=== PATIENT | male | born 1955 | race African-American/Black ===

== ENCOUNTER 2017-11-27 10:25 | Inpatient (IN) ==
[2017-11-27] MEDS ORDERED: ASPIRIN 325 MG TABLET PO STA (10:51)
[2017-11-27] MEDS ORDERED: FUROSEMIDE 40 MG/4 ML VIAL IV STA (10:56)
[2017-11-27] MEDS ORDERED: FUROSEMIDE 100 MG/10 ML VIAL ONE (11:28)
[2017-11-27] MEDS ORDERED: ASPIRIN 325 MG TABLET ONE (11:29)
[2017-11-27 11:45] LABS: Basophils % 0.3 % (0.0-0.8); Eosinophils # 0.1 10*3/uL (0.0-0.87); Eosinophils % 1.1 % (0.00-10.9); Hematocrit 43.6 VOL% (42.0-52.0); Hemoglobin 14.2 GM/DL (14.0-18.0); Immature Granulocytes % 0.3 %; Immature Granulocytes Absolute 0.02 #; Lymphocytes # 1.7 10*3/uL (1.4-4.0); Lymphocytes % 22.6 % (21.2-54.2); Mean Corpuscular HGB Conc 32.6 GM/DL (32-36); Mean Corpuscular Hemoglobin 25 PG (27-34); Mean Platelet Volume 11.6 FL (9.6-12.0); Monocytes # 0.7 10*3/uL (0.11-0.8); NRBC # 0.03 10*3/uL; Neutrophils % 66.7 % (38.7-73.9); Platelet Count 218 T/CUMM (130-400); Red Blood Count 5.59 MC/CUMM (3.8-5.5); Red Cell Distribution Width 18.8 % (9.3-17.3); White Blood Count 7.5 T/CUMM (4-12)
[2017-11-27 11:51] LABS: INR 1.2
[2017-11-27 12:12] LABS: Albumin 3.2 G/DL (3.4-5.0); Bilirubin,Total 1.8 MG/DL (0.2-1.0); CKMB % 1.8 %; Calcium 8.8 MG/DL (8.5-10.1); Osmolality,Calculated 287.3 MOS/KG (273-304); Potassium 4.4 MMOL/L (3.5-5.1); Total Protein 6.8 G/DL (6.4-8.3)
[2017-11-27 12:14] LABS: Troponin I Only 0.576 NG/ML (0.00-0.045)
[2017-11-27] MEDS ORDERED: MAGNESIUM SULF RIDER 4 GM in PREMIX 1 EACH IV PRN (12:24)
[2017-11-27] MEDS ORDERED: POTASSIUM CHLORIDE RIDER 10 MEQ in PREMIX 1 EACH IV PRN (12:24)
[2017-11-27] MEDS ORDERED: ACETAMINOPHEN 325 MG TABLET PO PRN (12:24)
[2017-11-27] MEDS ORDERED: MAGNESIUM SULF RIDER 2 GM in PREMIX 1 EACH IV PRN (12:24)
[2017-11-27] MEDS ORDERED: ONDANSETRON 4 MG/2 ML VIAL IV PRN (12:24)
[2017-11-27] MEDS ORDERED: guaiFENesin/DM ER 600-30 MG TABLET PO PRN (15:05)
[2017-11-27] MEDS ORDERED: ALBUTEROL 2.5 MG/3 ML NEB RESP TX PRN (15:05)
[2017-11-27] MEDS ORDERED: LACTULOSE 20 GM/30 ML UDCUP PO PRN (15:05)
[2017-11-27] MEDS ORDERED: diphenhydrAMINE CAP 25 MG CAPSULE PO PRN (15:05)
[2017-11-27] MEDS ORDERED: DOCUSATE SODIUM 100 MG CAPSULE PO PRN (15:05)
[2017-11-27] MEDS ORDERED: ZALEPLON 5 MG CAPSULE PO PRN (15:05)
[2017-11-27] MEDS ORDERED: INFLUENZA VIRUS VACCINE 0.5 ML SYRINGE IM ONE (15:20)
[2017-11-27 16:27] LABS: CKMB % 1.8 %
[2017-11-27 16:28] LABS: Troponin I Only 0.489 NG/ML (0.00-0.045)
[2017-11-27] MEDS: FUROSEMIDE 40 MG/4 ML VIAL IV SCH (17:00)
[2017-11-27 17:20] LABS: Hepatitis A Ab IgM Quant 0.14 Index; Hepatitis A Ab IgM Result Negative (Negative); Hepatitis B Core IgM Quant 0.17 Index; Hepatitis B Core IgM Result Negative (Negative); Hepatitis B Surface Ag Quant 0.44 Index; Hepatitis B Surface Ag Result Negative (Negative); Hepatitis C Virus Ab Quant 0.06 Index; Hepatitis C Virus Ab Result Negative (Negative)
[2017-11-27 18:27] LABS: CKMB % 1.8 %
[2017-11-27 18:30] LABS: Troponin I Only 0.455 NG/ML (0.00-0.045)
[2017-11-27] MEDS: ENOXAPARIN 30 MG/0.3 ML SYRINGE SUBCUT SCH (21:33)
[2017-11-27] MEDS: CARVEDILOL 25 MG TABLET PO SCH (21:33)
[2017-11-28 05:12] LABS: Basophils % 0.3 % (0.0-0.8); Eosinophils # 0.2 10*3/uL (0.0-0.87); Eosinophils % 2.1 % (0.00-10.9); Hematocrit 39.2 VOL% (42.0-52.0); Hemoglobin 12.8 GM/DL (14.0-18.0); Immature Granulocytes % 0.1 %; Immature Granulocytes Absolute 0.01 #; Lymphocytes # 1.3 10*3/uL (1.4-4.0); Lymphocytes % 18.7 % (21.2-54.2); Mean Corpuscular HGB Conc 32.7 GM/DL (32-36); Mean Corpuscular Hemoglobin 25 PG (27-34); Mean Corpuscular Volume 77.5 FL (87-102); Monocytes # 0.7 10*3/uL (0.11-0.8); Monocytes % 10.3 % (1.7-12.7); NRBC # 0.04 10*3/uL; Neutrophils # 4.8 10*3/uL (1.4-7.4); Neutrophils % 68.5 % (38.7-73.9); Platelet Count 204 T/CUMM (130-400); Red Blood Count 5.06 MC/CUMM (3.8-5.5); Red Cell Distribution Width 18.1 % (9.3-17.3); White Blood Count 7.1 T/CUMM (4-12)
[2017-11-28 06:00] LABS: Albumin 2.6 G/DL (3.4-5.0); Bilirubin,Total 1.5 MG/DL (0.2-1.0); Calcium 7.9 MG/DL (8.5-10.1); Osmolality,Calculated 286.4 MOS/KG (273-304); Potassium 3.8 MMOL/L (3.5-5.1); Total Protein 5.9 G/DL (6.4-8.3)
[2017-11-28 06:24] LABS: Risk Ratio 4.47; VLDL CHOLESTEROL 9.4 MG/DL
[2017-11-28] MEDS: ASPIRIN EC 81 MG TABLET PO SCH (08:46)
[2017-11-28] MEDS: PANTOPRAZOLE 40 MG TABLET PO SCH (08:46)
[2017-11-28] MEDS: CARVEDILOL 25 MG TABLET PO SCH ×2 (08:46→20:29)
[2017-11-28] MEDS: FUROSEMIDE 40 MG/4 ML VIAL IV SCH ×2 (08:46→16:33)
[2017-11-28 18:04] LABS: Barbiturates Screen,Urine Negative (Negative); Benzodiazepines Screen,Urine Negative (Negative); Cannabinoid Screen,Urine Negative (Negative); Opiate Screen,Urine Negative (Negative); Phencyclidine Screen,Urine Negative (Negative)
[2017-11-28] MEDS: ENOXAPARIN 30 MG/0.3 ML SYRINGE SUBCUT SCH (20:29)
[2017-11-29 03:11] LABS: Basophils % 0.3 % (0.0-0.8); Eosinophils # 0.2 10*3/uL (0.0-0.87); Eosinophils % 3.1 % (0.00-10.9); Hematocrit 37.9 VOL% (42.0-52.0); Hemoglobin 13.1 GM/DL (14.0-18.0); Immature Granulocytes % 0.2 %; Immature Granulocytes Absolute 0.01 #; Lymphocytes # 1.6 10*3/uL (1.4-4.0); Lymphocytes % 27.5 % (21.2-54.2); Mean Corpuscular HGB Conc 34.6 GM/DL (32-36); Mean Corpuscular Hemoglobin 26 PG (27-34); Mean Platelet Volume 11.5 FL (9.6-12.0); Monocytes # 0.6 10*3/uL (0.11-0.8); Monocytes % 10.2 % (1.7-12.7); NRBC # 0.05 10*3/uL; Neutrophils # 3.5 10*3/uL (1.4-7.4); Neutrophils % 58.7 % (38.7-73.9); Platelet Count 223 T/CUMM (130-400); Red Blood Count 5.05 MC/CUMM (3.8-5.5); Red Cell Distribution Width 18.1 % (9.3-17.3); White Blood Count 5.9 T/CUMM (4-12)
[2017-11-29 05:42] LABS: Calcium 7.9 MG/DL (8.5-10.1); Osmolality,Calculated 288.4 MOS/KG (273-304); Potassium 3.8 MMOL/L (3.5-5.1)
[2017-11-29] MEDS: ASPIRIN EC 81 MG TABLET PO SCH (08:34)
[2017-11-29] MEDS: PANTOPRAZOLE 40 MG TABLET PO SCH (08:34)
[2017-11-29] MEDS: CARVEDILOL 25 MG TABLET PO SCH ×2 (08:34→21:07)
[2017-11-29] MEDS: FUROSEMIDE 40 MG/4 ML VIAL IV SCH (08:35)
[2017-11-29] MEDS: FUROSEMIDE 40 MG TABLET PO SCH (16:30)
[2017-11-29] MEDS: ENOXAPARIN 40 MG/0.4 ML SYRINGE SUBCUT SCH (21:07)
[2017-11-30 05:32] LABS: Basophils % 0.3 % (0.0-0.8); Eosinophils # 0.2 10*3/uL (0.0-0.87); Eosinophils % 2.9 % (0.00-10.9); Hematocrit 39.3 VOL% (42.0-52.0); Hemoglobin 12.7 GM/DL (14.0-18.0); Immature Granulocytes % 0.3 %; Immature Granulocytes Absolute 0.02 #; Lymphocytes # 1.8 10*3/uL (1.4-4.0); Lymphocytes % 30.9 % (21.2-54.2); Mean Corpuscular HGB Conc 32.3 GM/DL (32-36); Mean Corpuscular Hemoglobin 25 PG (27-34); Mean Corpuscular Volume 77.2 FL (87-102); Mean Platelet Volume 12.2 FL (9.6-12.0); Monocytes # 0.6 10*3/uL (0.11-0.8); Monocytes % 10.4 % (1.7-12.7); NRBC # 0.03 10*3/uL; Neutrophils # 3.2 10*3/uL (1.4-7.4); Neutrophils % 55.2 % (38.7-73.9); Platelet Count 248 T/CUMM (130-400); Red Blood Count 5.09 MC/CUMM (3.8-5.5); Red Cell Distribution Width 17.5 % (9.3-17.3); White Blood Count 5.9 T/CUMM (4-12)
[2017-11-30 06:18] LABS: Albumin 2.8 G/DL (3.4-5.0); Bilirubin,Total 1.2 MG/DL (0.2-1.0); Calcium 7.6 MG/DL (8.5-10.1); Osmolality,Calculated 287.3 MOS/KG (273-304); Potassium 3.8 MMOL/L (3.5-5.1); Total Protein 5.6 G/DL (6.4-8.3)
[2017-11-30] MEDS: PANTOPRAZOLE 40 MG TABLET PO SCH (08:01)
[2017-11-30] MEDS: CARVEDILOL 25 MG TABLET PO SCH ×2 (08:01→20:43)
[2017-11-30] MEDS: FUROSEMIDE 40 MG TABLET PO SCH ×2 (08:02→17:16)
[2017-11-30] MEDS: ASPIRIN EC 81 MG TABLET PO SCH (08:02)
[2017-11-30] MEDS: ENOXAPARIN 40 MG/0.4 ML SYRINGE SUBCUT SCH (20:43)
[2017-12-01 05:52] LABS: Basophils % 0.5 % (0.0-0.8); Eosinophils # 0.2 10*3/uL (0.0-0.87); Eosinophils % 2.5 % (0.00-10.9); Hematocrit 40.5 VOL% (42.0-52.0); Hemoglobin 13.6 GM/DL (14.0-18.0); Immature Granulocytes % 0.2 %; Immature Granulocytes Absolute 0.01 #; Lymphocytes # 1.8 10*3/uL (1.4-4.0); Lymphocytes % 29.5 % (21.2-54.2); Mean Corpuscular HGB Conc 33.6 GM/DL (32-36); Mean Corpuscular Hemoglobin 26 PG (27-34); Mean Corpuscular Volume 76.7 FL (87-102); Mean Platelet Volume 11.5 FL (9.6-12.0); Monocytes # 0.7 10*3/uL (0.11-0.8); Monocytes % 12.1 % (1.7-12.7); NRBC # 0.02 10*3/uL; Neutrophils # 3.3 10*3/uL (1.4-7.4); Neutrophils % 55.2 % (38.7-73.9); Platelet Count 246 T/CUMM (130-400); Red Blood Count 5.28 MC/CUMM (3.8-5.5); Red Cell Distribution Width 18.3 % (9.3-17.3); White Blood Count 5.9 T/CUMM (4-12)
[2017-12-01 06:09] LABS: Calcium 7.8 MG/DL (8.5-10.1); Osmolality,Calculated 285.7 MOS/KG (273-304); Potassium 3.8 MMOL/L (3.5-5.1)
[2017-12-01] MEDS: CARVEDILOL 25 MG TABLET PO SCH (09:22)
[2017-12-01] MEDS: ASPIRIN EC 81 MG TABLET PO SCH (09:22)
[2017-12-01] MEDS: PANTOPRAZOLE 40 MG TABLET PO SCH (09:22)
[2017-12-01] MEDS: FUROSEMIDE 40 MG TABLET PO SCH (09:22)
[2017-12-01 12:13] VITALS: BP 101/73
== END 2017-12-01 15:04 | disposition home or self-care (01) | DRG 291 ==
LOC: EDUNIT# → EDBD → N.ED 10:25 → N.EDINP 12:24 → N.TELEN 13:56
PROVIDERS: ADMIT Internal Medicine Cardiovascular Disease; ATTEND Internal Medicine Cardiovascular Disease

== ENCOUNTER 2019-03-10 15:35 | Inpatient (IN) ==
[2019-03-10] MEDS ORDERED: ALBUTEROL/IPRATROPIUM 3 ML NEB RESP TX STA ×2 (15:41→16:13)
[2019-03-10] MEDS ORDERED: methylPREDNISolone SOD SUC 125 MG/2 ML VIAL IV STA (15:41)
[2019-03-10] MEDS ORDERED: FUROSEMIDE 100 MG/10 ML VIAL IV STA (16:13)
[2019-03-10 16:18] LABS: Basophils % 0.1 % (0.0-0.8); Eosinophils # 0.2 10*3/uL (0.0-0.87); Eosinophils % 2.7 % (0.00-10.9); Hematocrit 42.9 VOL% (42.0-52.0); Hemoglobin 13.4 GM/DL (14.0-18.0); Immature Granulocytes % 0.4 %; Immature Granulocytes Absolute 0.03 #; Lymphocytes # 1.6 10*3/uL (1.4-4.0); Lymphocytes % 19.1 % (21.2-54.2); Mean Corpuscular HGB Conc 31.2 GM/DL (32-36); Mean Corpuscular Volume 92.7 FL (87-102); Mean Platelet Volume 10.9 FL (9.6-12.0); Monocytes % 10.4 % (1.7-12.7); NRBC # 0.06 10*3/uL; Neutrophils % 67.3 % (38.7-73.9); Platelet Count 224 T/CUMM (130-400); Red Blood Count 4.63 MC/CUMM (3.8-5.5); White Blood Count 8.4 T/CUMM (4-12)
[2019-03-10 16:38] LABS: Albumin 3.2 G/DL (3.4-5.0); Bilirubin,Total 0.5 MG/DL (0.2-1.0); Calcium 7.9 MG/DL (8.5-10.1); Osmolality,Calculated 294.7 MOS/KG (273-304); Total Protein 6.5 G/DL (6.4-8.3)
[2019-03-10] MEDS ORDERED: ACETAMINOPHEN 325 MG TABLET PO PRN (17:15)
[2019-03-10] MEDS ORDERED: MAGNESIUM SULF RIDER 2 GM in PREMIX 1 EACH IV PRN (17:15)
[2019-03-10] MEDS ORDERED: MAGNESIUM SULF RIDER 4 GM in PREMIX 1 EACH IV PRN (17:15)
[2019-03-10] MEDS ORDERED: ALBUTEROL/IPRATROPIUM 3 ML NEB RESP TX PRN (17:20)
[2019-03-10 19:16] LABS: Troponin I 0.176 NG/ML (0.00-0.045)
[2019-03-10] MEDS: ENOXAPARIN 30 MG/0.3 ML SYRINGE SUBCUT SCH (20:07)
[2019-03-11 06:53] LABS: Basophils % 0.1 % (0.0-0.8); Hemoglobin 14.2 GM/DL (14.0-18.0); Immature Granulocytes % 0.3 %; Immature Granulocytes Absolute 0.02 #; Lymphocytes # 0.8 10*3/uL (1.4-4.0); Lymphocytes % 10.9 % (21.2-54.2); Mean Corpuscular HGB Conc 32.3 GM/DL (32-36); Mean Corpuscular Volume 89.8 FL (87-102); Mean Platelet Volume 11.5 FL (9.6-12.0); Monocytes % 2.6 % (1.7-12.7); NRBC # 0.05 10*3/uL; Neutrophils % 86.1 % (38.7-73.9); Platelet Count 245 T/CUMM (130-400); Red Cell Distribution Width 17.3 % (9.3-17.3); White Blood Count 7.2 T/CUMM (4-12)
[2019-03-11 07:09] LABS: Bilirubin,Total 0.6 MG/DL (0.2-1.0); Calcium 8.1 MG/DL (8.5-10.1); Osmolality,Calculated 292.3 MOS/KG (273-304)
[2019-03-11] MEDS: FUROSEMIDE 40 MG/4 ML VIAL IV SCH ×2 (08:45→16:55)
[2019-03-11] MEDS: PANTOPRAZOLE 40 MG TABLET PO SCH (08:46)
[2019-03-11] MEDS: CARVEDILOL 25 MG TABLET PO SCH ×2 (08:46→16:55)
[2019-03-11] MEDS: ASPIRIN EC 81 MG TABLET PO SCH (08:46)
[2019-03-11] MEDS ORDERED: amLODIPine 10 MG TABLET PO ONE (08:47)
[2019-03-11] MEDS ORDERED: ALBUTEROL 2.5 MG/3 ML NEB RESP TX PRN (11:00)
[2019-03-11] MEDS: ENOXAPARIN 30 MG/0.3 ML SYRINGE SUBCUT SCH (21:01)
[2019-03-12 07:52] LABS: Calcium 8.1 MG/DL (8.5-10.1); Osmolality,Calculated 284.8 MOS/KG (273-304)
[2019-03-12 08:21] VITALS: BP 114/86
[2019-03-12] MEDS ORDERED: amLODIPine 10 MG TABLET PO SCH (09:00)
[2019-03-12] MEDS ORDERED: amLODIPine 5 MG TABLET PO SCH (09:00)
[2019-03-12] MEDS: FUROSEMIDE 40 MG/4 ML VIAL IV SCH (09:16)
[2019-03-12] MEDS: PANTOPRAZOLE 40 MG TABLET PO SCH (09:16)
[2019-03-12] MEDS: ASPIRIN EC 81 MG TABLET PO SCH (09:16)
[2019-03-12] MEDS: CARVEDILOL 25 MG TABLET PO SCH (09:16)
[2019-03-12] MEDS ORDERED: methylPREDNISolone SOD SUC 40 MG/1 ML VIAL IV ONE (09:17)
== END 2019-03-12 10:54 | disposition home or self-care (01) | DRG 291 ==
LOC: N.ED 15:35 → N.2E 17:15 → SUATTDRO 17:15 → N.2E 18:53
PROVIDERS: ADMIT Internal Medicine; ATTEND Internal Medicine Nephrology

== ENCOUNTER 2020-10-30 05:35 | Inpatient (IN) ==
[2020-10-30] MEDS ORDERED: FUROSEMIDE 40 MG/4 ML VIAL IV STA (06:53)
[2020-10-30 07:00] LABS: Basophils % 0.2 % (0.0-0.8); Eosinophils # 0.2 10*3/uL (0.0-0.87); Eosinophils % 2.6 % (0.00-10.9); Hematocrit 43.5 VOL% (42.0-52.0); Hemoglobin 14.2 GM/DL (14.0-18.0); Immature Granulocytes % 0.3 %; Immature Granulocytes Absolute 0.02 #; Lymphocytes # 1.4 10*3/uL (1.4-4.0); Lymphocytes % 20.7 % (21.2-54.2); Mean Corpuscular HGB Conc 32.6 GM/DL (32-36); Mean Corpuscular Volume 85.1 FL (87-102); Mean Platelet Volume 10.8 FL (9.6-12.0); Monocytes % 10.8 % (1.7-12.7); NRBC # 0.06 10*3/uL; Neutrophils % 65.4 % (38.7-73.9); Platelet Count 211 T/CUMM (130-400); Red Blood Count 5.11 MC/CUMM (3.8-5.5); Red Cell Distribution Width 17.9 % (9.3-17.3); White Blood Count 6.6 T/CUMM (4-12)
[2020-10-30 07:21] LABS: Albumin 3.3 G/DL (3.4-5.0); Bilirubin,Total 0.6 MG/DL (0.2-1.0); Calcium 8.4 MG/DL (8.5-10.1); Osmolality,Calculated 291.1 MOS/KG (273-304); Potassium 4.8 MMOL/L (3.5-5.1); Total Protein 6.7 G/DL (6.4-8.3)
[2020-10-30 07:22] LABS: ABG Base Excess -0.8 MMOL/L (-2.5-2.5); ABG HCO3 23.6 MMOL/L (20-26); ABG Oxygen Saturation 93.4 % (95-100); ABG PCO2 37.6 MM HG (35-48); ABG PH 7.405 (7.35-7.45); ABG PO2 72.1 MM HG (80-95); ABG TCO2 20.3 MMOL/L (23-27)
[2020-10-30] MEDS ORDERED: guaiFENesin/DM ER 600-30 MG TABLET PO PRN (09:46)
[2020-10-30] MEDS ORDERED: DEXTROSE 50% 25 GM/50 ML VIAL IV PRN (09:46)
[2020-10-30] MEDS ORDERED: GLUCAGON 1 MG VIAL IM PRN (09:46)
[2020-10-30] MEDS ORDERED: ZALEPLON 5 MG CAPSULE PO PRN (09:46)
[2020-10-30] MEDS ORDERED: ONDANSETRON 4 MG/2 ML VIAL IV PRN (09:46)
[2020-10-30] MEDS ORDERED: diphenhydrAMINE CAP 25 MG CAPSULE PO PRN (09:46)
[2020-10-30] MEDS ORDERED: POTASSIUM CHLORIDE RIDER 10 MEQ in PREMIX 1 EACH IV PRN (09:46)
[2020-10-30] MEDS ORDERED: MAGNESIUM SULF RIDER 4 GM in PREMIX 1 EACH IV PRN (09:46)
[2020-10-30] MEDS ORDERED: NICOTINE 21 MG/24 HR PATCH TRANSDERM PRN (09:46)
[2020-10-30] MEDS ORDERED: DOCUSATE SODIUM 100 MG CAPSULE PO PRN (09:46)
[2020-10-30] MEDS ORDERED: MAGNESIUM SULF RIDER 2 GM in PREMIX 1 EACH IV PRN (09:46)
[2020-10-30 10:46] LABS: Risk Ratio 3.37; Thyroid Stimulating Hormone 2.9 uIU/ml (0.358-3.74); VLDL CHOLESTEROL 12.6 MG/DL
[2020-10-30] MEDS: ENOXAPARIN 30 MG/0.3 ML SYRINGE SUBCUT SCH (12:00)
[2020-10-30] MEDS: carvediloL 3.125 MG TABLET PO SCH ×2 (12:00→20:59)
[2020-10-30] MEDS ORDERED: ISOSORBIDE MONONITRATE 30 MG TABLET PO ONE (12:00)
[2020-10-30] MEDS: PANTOPRAZOLE 40 MG TABLET PO SCH (12:06)
[2020-10-30] MEDS: ISOSORBIDE DINITRATE 20 MG TABLET PO SCH (13:16)
[2020-10-30] MEDS ORDERED: PNEUMOCOCCAL VACCINE (13 VALENT) 0.5 ML SYRINGE IM ONE (15:59)
[2020-10-30] MEDS ORDERED: INFLUENZA VIRUS VACCINE 0.5 ML SYRINGE IM ONE (15:59)
[2020-10-30] MEDS: FUROSEMIDE 40 MG/4 ML VIAL IV SCH (17:42)
[2020-10-31 05:50] LABS: Basophils % 0.3 % (0.0-0.8); Eosinophils # 0.2 10*3/uL (0.0-0.87); Eosinophils % 2.9 % (0.00-10.9); Hematocrit 45.2 VOL% (42.0-52.0); Hemoglobin 14.5 GM/DL (14.0-18.0); Immature Granulocytes % 0.3 %; Immature Granulocytes Absolute 0.02 #; Lymphocytes # 1.4 10*3/uL (1.4-4.0); Lymphocytes % 17.9 % (21.2-54.2); Mean Corpuscular HGB Conc 32.1 GM/DL (32-36); Mean Corpuscular Volume 83.5 FL (87-102); Mean Platelet Volume 11.1 FL (9.6-12.0); Monocytes % 10.5 % (1.7-12.7); NRBC # 0.03 10*3/uL; Neutrophils % 68.1 % (38.7-73.9); Platelet Count 213 T/CUMM (130-400); Red Blood Count 5.41 MC/CUMM (3.8-5.5); Red Cell Distribution Width 17.2 % (9.3-17.3); White Blood Count 7.5 T/CUMM (4-12)
[2020-10-31 06:12] LABS: Albumin 2.8 G/DL (3.4-5.0); Bilirubin,Total 0.5 MG/DL (0.2-1.0); Calcium 8.2 MG/DL (8.5-10.1); Osmolality,Calculated 287.3 MOS/KG (273-304); Potassium 3.7 MMOL/L (3.5-5.1); Total Protein 6.5 G/DL (6.4-8.3)
[2020-10-31] MEDS: ISOSORBIDE DINITRATE 20 MG TABLET PO SCH ×2 (09:10→21:11)
[2020-10-31] MEDS: PANTOPRAZOLE 40 MG TABLET PO SCH (09:10)
[2020-10-31] MEDS: FUROSEMIDE 40 MG/4 ML VIAL IV SCH ×3 (09:11→16:15)
[2020-10-31] MEDS: carvediloL 3.125 MG TABLET PO SCH (09:11)
[2020-10-31] MEDS: ENOXAPARIN 30 MG/0.3 ML SYRINGE SUBCUT SCH (09:11)
[2020-10-31] MEDS: carvediloL 6.25 MG TABLET PO SCH (18:10)
[2020-10-31] MEDS: MAGNESIUM OXIDE 400 MG TABLET PO SCH (21:11)
[2020-11-01 05:20] LABS: Basophils % 0.2 % (0.0-0.8); Eosinophils # 0.2 10*3/uL (0.0-0.87); Eosinophils % 2.1 % (0.00-10.9); Hematocrit 46.1 VOL% (42.0-52.0); Hemoglobin 14.9 GM/DL (14.0-18.0); Immature Granulocytes % 0.4 %; Immature Granulocytes Absolute 0.03 #; Lymphocytes # 1.2 10*3/uL (1.4-4.0); Lymphocytes % 14.2 % (21.2-54.2); Mean Corpuscular HGB Conc 32.3 GM/DL (32-36); Mean Platelet Volume 10.6 FL (9.6-12.0); Monocytes % 11.7 % (1.7-12.7); NRBC # 0.02 10*3/uL; Neutrophils % 71.4 % (38.7-73.9); Platelet Count 202 T/CUMM (130-400); Red Blood Count 5.49 MC/CUMM (3.8-5.5); Red Cell Distribution Width 17.2 % (9.3-17.3); White Blood Count 8.2 T/CUMM (4-12)
[2020-11-01 05:34] LABS: Albumin 2.7 G/DL (3.4-5.0); Bilirubin,Total 0.9 MG/DL (0.2-1.0); Osmolality,Calculated 280.7 MOS/KG (273-304); Potassium 3.4 MMOL/L (3.5-5.1); Total Protein 6.6 G/DL (6.4-8.3)
[2020-11-01] MEDS: carvediloL 6.25 MG TABLET PO SCH ×2 (09:17→18:19)
[2020-11-01] MEDS: ISOSORBIDE DINITRATE 20 MG TABLET PO SCH ×3 (09:17→21:07)
[2020-11-01] MEDS: FUROSEMIDE 40 MG/4 ML VIAL IV SCH (09:17)
[2020-11-01] MEDS: MAGNESIUM OXIDE 400 MG TABLET PO SCH ×2 (09:18→21:06)
[2020-11-01] MEDS: PANTOPRAZOLE 40 MG TABLET PO SCH (09:18)
[2020-11-01] MEDS: ENOXAPARIN 30 MG/0.3 ML SYRINGE SUBCUT SCH (09:19)
[2020-11-01] MEDS: POTASSIUM CHLORIDE 20 MEQ TABLET PO PRN ×3 (14:10→21:06)
[2020-11-01] MEDS: hydrALAZINE 25 MG TABLET PO SCH ×2 (17:24→21:07)
[2020-11-01] MEDS: FUROSEMIDE 40 MG TABLET PO SCH (17:24)
[2020-11-02 05:05] LABS: Basophils % 0.3 % (0.0-0.8); Eosinophils # 0.2 10*3/uL (0.0-0.87); Hematocrit 45.6 VOL% (42.0-52.0); Hemoglobin 14.7 GM/DL (14.0-18.0); Immature Granulocytes % 0.2 %; Immature Granulocytes Absolute 0.01 #; Lymphocytes # 1.2 10*3/uL (1.4-4.0); Lymphocytes % 20.7 % (21.2-54.2); Mean Corpuscular HGB Conc 32.2 GM/DL (32-36); Mean Corpuscular Volume 84.3 FL (87-102); Mean Platelet Volume 10.9 FL (9.6-12.0); Monocytes % 12.3 % (1.7-12.7); Neutrophils % 63.5 % (38.7-73.9); Platelet Count 203 T/CUMM (130-400); Red Blood Count 5.41 MC/CUMM (3.8-5.5); Red Cell Distribution Width 17.5 % (9.3-17.3)
[2020-11-02 05:34] LABS: Albumin 2.6 G/DL (3.4-5.0); Bilirubin,Total 0.6 MG/DL (0.2-1.0); Calcium 8.1 MG/DL (8.5-10.1); Osmolality,Calculated 281.7 MOS/KG (273-304); Potassium 4.5 MMOL/L (3.5-5.1); Total Protein 6.5 G/DL (6.4-8.3)
[2020-11-02] MEDS ORDERED: METOPROLOL SUCCINATE XL 25 MG TABLET PO SCH (09:00)
[2020-11-02] MEDS: hydrALAZINE 25 MG TABLET PO SCH ×2 (09:25→17:20)
[2020-11-02] MEDS: ENOXAPARIN 30 MG/0.3 ML SYRINGE SUBCUT SCH (09:25)
[2020-11-02] MEDS: FUROSEMIDE 40 MG TABLET PO SCH ×2 (09:25→17:20)
[2020-11-02] MEDS: ISOSORBIDE DINITRATE 20 MG TABLET PO SCH ×2 (09:25→17:20)
[2020-11-02] MEDS: MAGNESIUM OXIDE 400 MG TABLET PO SCH (09:25)
[2020-11-02] MEDS: PANTOPRAZOLE 40 MG TABLET PO SCH (09:25)
[2020-11-02 15:53] VITALS: BP 122/80
[2020-11-02] MEDS ORDERED: PNEUMOCOCCAL VACCINE (13 VALENT) 0.5 ML SYRINGE IM ONE (17:34)
[2020-11-02] MEDS ORDERED: INFLUENZA VIRUS VACCINE 0.5 ML SYRINGE IM ONE (17:34)
== END 2020-11-02 18:01 | disposition home or self-care (01) | DRG 291 ==
LOC: N.ED 05:35 → N.EDINP 09:46 → SUATTDRO 09:46 → N.TELEN 15:30
PROVIDERS: ADMIT Emergency Medicine; ATTEND Family Medicine

== ENCOUNTER 2021-01-30 01:01 | Observation (INO) ==
[2021-01-30] MEDS ORDERED: ALBUTEROL/IPRATROPIUM 3 ML NEB RESP TX STA (01:30)
[2021-01-30] MEDS ORDERED: methylPREDNISolone SOD SUC 125 MG/2 ML VIAL IV STA (01:30)
[2021-01-30] MEDS ORDERED: ONDANSETRON 4 MG/2 ML VIAL IV STA (01:30)
[2021-01-30] MEDS ORDERED: MORPHINE 4 MG/1 ML VIAL IV STA (01:30)
[2021-01-30] MEDS ORDERED: FUROSEMIDE 100 MG/10 ML VIAL IV STA (01:30)
[2021-01-30 01:55] LABS: Basophils % 0.1 % (0.0-0.8); Eosinophils # 0.2 10*3/uL (0.0-0.87); Eosinophils % 1.6 % (0.00-10.9); Hemoglobin 15.7 GM/DL (14.0-18.0); Immature Granulocytes % 0.3 %; Immature Granulocytes Absolute 0.03 #; Lymphocytes % 8.4 % (21.2-54.2); Mean Corpuscular Volume 83.9 FL (87-102); Monocytes % 4.8 % (1.7-12.7); Neutrophils % 84.8 % (38.7-73.9); Platelet Count 236 T/CUMM (130-400); Red Blood Count 5.84 MC/CUMM (3.8-5.5); Red Cell Distribution Width 21.5 % (9.3-17.3); White Blood Count 11.3 T/CUMM (4-12)
[2021-01-30 02:03] LABS: INR 1.1; PT Patient Result 12.6 SECS (9.8-11.9)
[2021-01-30 02:16] LABS: Albumin 3.4 G/DL (3.4-5.0); Bilirubin,Total 0.6 MG/DL (0.2-1.0); Calcium 8.6 MG/DL (8.5-10.1); Osmolality,Calculated 282.7 MOS/KG (273-304); Potassium 5.9 MMOL/L (3.5-5.1); Total Protein 7.5 G/DL (6.4-8.2)
[2021-01-30] MEDS ORDERED: CALCIUM CHLORIDE 1,000 MG/10 ML SYRINGE IV STA (02:46)
[2021-01-30 03:38] LABS: Bilirubin,Urine Negative (Negative); Blood, Urine Negative (Negative); Glucose,Urine (UA) Negative (Negative); Ketones,Urine Negative (Negative); Mucus,Urine Occasional /LPF (Occasional); Nitrite,Urine Negative (Negative); Protein,Urine Negative; RBC,Urine 2 /HPF (0-4); Urine Appearance CLEAR (Clear); Urine Color Straw (Yellow); Urine Specific Gravity 1.008 (1.001-1.035); Urine Urobilinogen < 2.0 EU/DL (0.2-1.0)
[2021-01-30] MEDS ORDERED: guaiFENesin/DM ER 600-30 MG TABLET PO PRN (03:53)
[2021-01-30] MEDS ORDERED: NICOTINE 21 MG/24 HR PATCH TRANSDERM PRN (03:53)
[2021-01-30] MEDS ORDERED: DEXTROSE 50% 25 GM/50 ML VIAL IV PRN (03:53)
[2021-01-30] MEDS ORDERED: MORPHINE 4 MG/1 ML VIAL IV PRN (03:53)
[2021-01-30] MEDS ORDERED: ACETAMINOPHEN 325 MG TABLET PO PRN (03:53)
[2021-01-30] MEDS ORDERED: GLUCAGON 1 MG VIAL IM PRN (03:53)
[2021-01-30] MEDS ORDERED: hydrALAZINE 20 MG/1 ML VIAL IV PRN (03:53)
[2021-01-30] MEDS ORDERED: ONDANSETRON 4 MG/2 ML VIAL IV PRN (03:53)
[2021-01-30 04:06] LABS: Barbiturates Screen,Urine Negative (Negative); Benzodiazepines Screen,Urine Negative (Negative); Cannabinoid Screen,Urine Negative (Negative); Opiate Screen,Urine Negative (Negative); Phencyclidine Screen,Urine Negative (Negative)
[2021-01-30] MEDS ORDERED: ENOXAPARIN 40 MG/0.4 ML SYRINGE SUBCUT SCH (07:00)
[2021-01-30 07:18] LABS: Calcium 9.6 MG/DL (8.5-10.1); Potassium 4.6 MMOL/L (3.5-5.1)
[2021-01-30] MEDS: ALBUTEROL/IPRATROPIUM 3 ML NEB RESP TX SCH ×3 (07:35→22:42)
[2021-01-30] MEDS: FUROSEMIDE 40 MG/4 ML VIAL IV SCH ×2 (07:49→16:13)
[2021-01-30] MEDS: HEPARIN 5,000 UNIT/1 ML VIAL SUBCUT SCH ×3 (07:49→23:50)
[2021-01-30 13:04] LABS: Albumin 3.5 G/DL (3.4-5.0); Bilirubin,Total 1.5 MG/DL (0.2-1.0); Calcium 9.3 MG/DL (8.5-10.1); Osmolality,Calculated 281.1 MOS/KG (273-304); Potassium 4.3 MMOL/L (3.5-5.1); Total Protein 8.1 G/DL (6.4-8.2)
[2021-01-30] MEDS: hydrALAZINE 25 MG TABLET PO SCH ×2 (16:14→23:51)
[2021-01-30] MEDS: ISOSORBIDE DINITRATE 20 MG TABLET PO SCH ×2 (16:14→23:51)
[2021-01-30] MEDS: METOPROLOL SUCCINATE XL 25 MG TABLET PO SCH (23:51)
[2021-01-31 03:51] LABS: Basophils % 0.1 % (0.0-0.8); Eosinophils # 0.1 10*3/uL (0.0-0.87); Eosinophils % 0.8 % (0.00-10.9); Hematocrit 48.8 VOL% (42.0-52.0); Hemoglobin 16.3 GM/DL (14.0-18.0); Immature Granulocytes % 0.3 %; Immature Granulocytes Absolute 0.03 #; Lymphocytes # 0.8 10*3/uL (1.4-4.0); Lymphocytes % 8.2 % (21.2-54.2); Mean Corpuscular HGB Conc 33.4 GM/DL (32-36); Mean Corpuscular Volume 81.3 FL (87-102); Mean Platelet Volume 11.3 FL (9.6-12.0); Monocytes % 9.6 % (1.7-12.7); NRBC # 0.02 10*3/uL; Platelet Count 238 T/CUMM (130-400); Red Cell Distribution Width 21.2 % (9.3-17.3); White Blood Count 9.7 T/CUMM (4-12)
[2021-01-31] MEDS: ALBUTEROL/IPRATROPIUM 3 ML NEB RESP TX SCH ×4 (03:56→19:34)
[2021-01-31 04:22] LABS: Calcium 8.5 MG/DL (8.5-10.1); Osmolality,Calculated 281.4 MOS/KG (273-304); Potassium 4.1 MMOL/L (3.5-5.1)
[2021-01-31 05:02] LABS: Eosinophils 1 % (0-10); Hypochromasia 1+; Lymphocytes 12 % (20-55); Microcytosis Slight; Segmented Neutrophils 78 % (50-85); Total Cells Counted 100
[2021-01-31 05:03] LABS: Platelet Estimate Normal; Target Cells Slight
[2021-01-31] MEDS: HEPARIN 5,000 UNIT/1 ML VIAL SUBCUT SCH ×2 (06:49→14:29)
[2021-01-31] MEDS: FUROSEMIDE 40 MG/4 ML VIAL IV SCH ×2 (08:27→17:26)
[2021-01-31] MEDS: ISOSORBIDE DINITRATE 20 MG TABLET PO SCH ×3 (09:13→21:29)
[2021-01-31] MEDS: hydrALAZINE 25 MG TABLET PO SCH ×3 (09:13→22:18)
[2021-01-31] MEDS: METOPROLOL SUCCINATE XL 25 MG TABLET PO SCH ×2 (09:13→22:18)
[2021-01-31] MEDS: SUCRALFATE 1 GM TABLET PO SCH ×2 (16:55→21:29)
[2021-02-01] MEDS: HEPARIN 5,000 UNIT/1 ML VIAL SUBCUT SCH ×2 (00:07→08:51)
[2021-02-01] MEDS: ALBUTEROL/IPRATROPIUM 3 ML NEB RESP TX SCH ×3 (01:32→12:12)
[2021-02-01 05:40] LABS: Basophils % 0.1 % (0.0-0.8); Eosinophils # 0.1 10*3/uL (0.0-0.87); Eosinophils % 1.3 % (0.00-10.9); Hematocrit 48.5 VOL% (42.0-52.0); Hemoglobin 16.1 GM/DL (14.0-18.0); Immature Granulocytes % 0.1 %; Immature Granulocytes Absolute 0.01 #; Lymphocytes # 1.5 10*3/uL (1.4-4.0); Lymphocytes % 21.3 % (21.2-54.2); Mean Corpuscular HGB Conc 33.2 GM/DL (32-36); Mean Corpuscular Volume 81.6 FL (87-102); Mean Platelet Volume 10.6 FL (9.6-12.0); Neutrophils % 64.2 % (38.7-73.9); Platelet Count 209 T/CUMM (130-400); Red Blood Count 5.94 MC/CUMM (3.8-5.5); White Blood Count 7.1 T/CUMM (4-12)
[2021-02-01 06:04] LABS: Albumin 3.2 G/DL (3.4-5.0); Bilirubin,Total 0.9 MG/DL (0.2-1.0); Calcium 8.3 MG/DL (8.5-10.1); Osmolality,Calculated 280.2 MOS/KG (273-304); Potassium 4.3 MMOL/L (3.5-5.1); Total Protein 7.1 G/DL (6.4-8.2)
[2021-02-01] MEDS: SUCRALFATE 1 GM TABLET PO SCH ×3 (07:16→12:02)
[2021-02-01] MEDS: FUROSEMIDE 40 MG/4 ML VIAL IV SCH (07:45)
[2021-02-01] MEDS: ISOSORBIDE DINITRATE 20 MG TABLET PO SCH (08:52)
[2021-02-01] MEDS: METOPROLOL SUCCINATE XL 25 MG TABLET PO SCH (08:52)
[2021-02-01] MEDS: hydrALAZINE 25 MG TABLET PO SCH (08:52)
[2021-02-01] MEDS ORDERED: MULTIVITAMIN (CENTRUM) TABLET PO SCH (09:00)
[2021-02-01 12:10] VITALS: BP 84/57
[2021-02-01] MEDS ORDERED: FUROSEMIDE 40 MG TABLET PO SCH (16:00)
== END 2021-02-01 15:10 | disposition home or self-care (01) ==
LOC: N.EDINP 01:01 → N.ED 01:01 → N.TELEN 11:46
PROVIDERS: ADMIT Internal Medicine; ATTEND Internal Medicine

== ENCOUNTER 2021-04-07 00:55 | Observation (INO) ==
[2021-04-07 01:26] LABS: Basophils % 0.1 % (0.0-0.8); Eosinophils # 0.1 10*3/uL (0.0-0.87); Eosinophils % 1.8 % (0.00-10.9); Hematocrit 47.3 VOL% (42.0-52.0); Hemoglobin 15.2 GM/DL (14.0-18.0); Immature Granulocytes % 0.4 %; Immature Granulocytes Absolute 0.03 #; Lymphocytes # 1.3 10*3/uL (1.4-4.0); Lymphocytes % 17.4 % (21.2-54.2); Mean Corpuscular HGB Conc 32.1 GM/DL (32-36); Mean Corpuscular Volume 87.4 FL (87-102); Mean Platelet Volume 11.6 FL (9.6-12.0); NRBC # 0.04 10*3/uL; Neutrophils % 72.3 % (38.7-73.9); Platelet Count 165 T/CUMM (130-400); Red Blood Count 5.41 MC/CUMM (3.8-5.5); Red Cell Distribution Width 19.5 % (9.3-17.3); White Blood Count 7.6 T/CUMM (4-12)
[2021-04-07 01:51] LABS: Albumin 3.4 G/DL (3.4-5.0); Calcium 8.5 MG/DL (8.5-10.1); Osmolality,Calculated 287.4 MOS/KG (273-304); Potassium 5.4 MMOL/L (3.5-5.1); Total Protein 7.1 G/DL (6.4-8.2)
[2021-04-07] MEDS ORDERED: FUROSEMIDE 40 MG/4 ML VIAL IV STA (02:27)
[2021-04-07] MEDS ORDERED: ALBUTEROL/IPRATROPIUM 3 ML NEB RESP TX PRN (03:55)
[2021-04-07] MEDS: ENOXAPARIN 40 MG/0.4 ML SYRINGE SUBCUT SCH (04:12)
[2021-04-07 06:11] LABS: Barbiturates Screen,Urine Negative (Negative); Benzodiazepines Screen,Urine Negative (Negative); Cannabinoid Screen,Urine Negative (Negative); Opiate Screen,Urine Negative (Negative); Phencyclidine Screen,Urine Negative (Negative)
[2021-04-07 07:13] LABS: Eosinophils 4 % (0-10); Lymphocytes 18 % (20-55); Nucleated Red Blood Cells 2 (0-5); Segmented Neutrophils 74 % (50-85); Total Cells Counted 100
[2021-04-07 07:14] LABS: Platelet Estimate Decreased
[2021-04-07] MEDS: FUROSEMIDE 40 MG/4 ML VIAL IV SCH ×2 (08:23→15:30)
[2021-04-07] MEDS ORDERED: METOPROLOL SUCCINATE XL 25 MG TABLET PO SCH (09:00)
[2021-04-07] MEDS ORDERED: SODIUM POLYSTYRENE SULFATE 15 GM/60 ML BOTTLE PO STA (10:11)
[2021-04-07 12:22] LABS: Calcium 8.9 MG/DL (8.5-10.1); Osmolality,Calculated 286.4 MOS/KG (273-304); Potassium 4.1 MMOL/L (3.5-5.1)
[2021-04-07] MEDS: METOPROLOL SUCCINATE XL 25 MG TABLET PO SCH (21:46)
[2021-04-07] MEDS: hydrALAZINE 25 MG TABLET PO SCH (21:46)
[2021-04-08] MEDS: ENOXAPARIN 40 MG/0.4 ML SYRINGE SUBCUT SCH (06:19)
[2021-04-08] MEDS: FUROSEMIDE 40 MG/4 ML VIAL IV SCH ×2 (06:20→08:32)
[2021-04-08 06:30] LABS: Calcium 7.9 MG/DL (8.5-10.1); Osmolality,Calculated 288.4 MOS/KG (273-304); Potassium 3.5 MMOL/L (3.5-5.1)
[2021-04-08 08:23] VITALS: BP 115/75
[2021-04-08] MEDS: METOPROLOL SUCCINATE XL 25 MG TABLET PO SCH (08:32)
[2021-04-08] MEDS: hydrALAZINE 25 MG TABLET PO SCH (08:32)
== END 2021-04-08 12:00 | disposition home or self-care (01) ==
LOC: N.ED 00:55 → N.EDINP 00:55 → N.TELEN 04:11
PROVIDERS: ADMIT Internal Medicine; ATTEND Internal Medicine

== ENCOUNTER 2021-07-04 13:18 | Inpatient (IN) ==
[2021-07-04 14:21] LABS: Basophils % 0.3 % (0.0-0.8); Eosinophils # 0.1 10*3/uL (0.0-0.87); Eosinophils % 0.8 % (0.00-10.9); Hemoglobin 15.9 GM/DL (14.0-18.0); Immature Granulocytes % 0.4 %; Immature Granulocytes Absolute 0.03 #; Lymphocytes # 0.9 10*3/uL (1.4-4.0); Lymphocytes % 11.7 % (21.2-54.2); Mean Corpuscular HGB Conc 32.4 GM/DL (32-36); Mean Corpuscular Volume 85.5 FL (87-102); Mean Platelet Volume 11.5 FL (9.6-12.0); Monocytes % 9.1 % (1.7-12.7); NRBC # 0.11 10*3/uL; Neutrophils % 77.7 % (38.7-73.9); Platelet Count 189 T/CUMM (130-400); Red Blood Count 5.73 MC/CUMM (3.8-5.5); Red Cell Distribution Width 20.2 % (9.3-17.3)
[2021-07-04 14:45] LABS: Albumin 3.4 G/DL (3.4-5.0); Calcium 8.9 MG/DL (8.5-10.1); Potassium 5.4 MMOL/L (3.5-5.1); Total Protein 7.2 G/DL (6.4-8.2)
[2021-07-04] MEDS ORDERED: FUROSEMIDE 40 MG/4 ML VIAL IV STA ×2 (15:14→21:41)
[2021-07-04] MEDS ORDERED: ONDANSETRON 4 MG/2 ML VIAL IV PRN (16:13)
[2021-07-04] MEDS ORDERED: HYDROmorphone 2 MG/1 ML VIAL IV STA (16:13)
[2021-07-04 16:47] LABS: ABG HCO3 19.3 MMOL/L (20-26); ABG Oxygen Saturation 86.7 % (95-100); ABG PCO2 41.1 MM HG (35-48); ABG PH 7.301 (7.35-7.45); ABG PO2 66.9 MM HG (80-95); ABG TCO2 17.4 MMOL/L (23-27)
[2021-07-04] MEDS: SODIUM CHLORIDE 0.9% 1,000 ML IV SCH (17:06)
[2021-07-04] MEDS ORDERED: hydrALAZINE 20 MG/1 ML VIAL IV PRN (17:24)
[2021-07-04] MEDS ORDERED: guaiFENesin/DM ER 600-30 MG TABLET PO PRN (17:24)
[2021-07-04] MEDS ORDERED: GLUCAGON 1 MG VIAL IM PRN (17:24)
[2021-07-04] MEDS ORDERED: DEXTROSE 50% 25 GM/50 ML VIAL IV PRN (17:24)
[2021-07-04] MEDS ORDERED: SODIUM POLYSTYRENE SULFATE 15 GM/60 ML BOTTLE PO ONE (17:40)
[2021-07-04] MEDS ORDERED: SODIUM CHLORIDE 0.9% 1,460 ML IV STA (18:04)
[2021-07-04 18:05] LABS: Ferritin 49.1 ng/mL (26-388)
[2021-07-04] MEDS: ALBUTEROL 2.5 MG/3 ML NEB RESP TX SCH (19:41)
[2021-07-04] MEDS: methylPREDNISolone SOD SUC 40 MG/1 ML VIAL IV SCH (19:56)
[2021-07-04] MEDS: cefTRIAXone 1,000 MG in SODIUM CHLORIDE 0.9% 100 ML IV SCH (19:58)
[2021-07-04] MEDS: HEPARIN 5,000 UNIT/1 ML VIAL SUBCUT SCH (20:02)
[2021-07-04] MEDS: AZITHROMYCIN INJ 500 MG in SODIUM CHLORIDE 0.9% 250 ML IV SCH (20:20)
[2021-07-04 21:55] LABS: ABG Base Excess -10.3 MMOL/L (-2.5-2.5); ABG HCO3 16.6 MMOL/L (20-26); ABG Oxygen Saturation 98.7 % (95-100); ABG PCO2 39.3 MM HG (35-48); ABG PH 7.243 (7.35-7.45); ABG TCO2 14.6 MMOL/L (23-27)
[2021-07-04] MEDS ORDERED: PIPERACILLIN/TAZOBACTAM 3,375 MG in SODIUM CHLORIDE 0.9% 100 ML IV ONE (22:24)
[2021-07-04] MEDS ORDERED: SODIUM BICARBONATE 50 MEQ/50 ML VIAL IV STA (22:24)
[2021-07-04] MEDS ORDERED: NOREPINEPHRINE 4 MG/4 ML VIAL IV ONE (23:16)
[2021-07-04] MEDS ORDERED: ETOMIDATE 20 MG/10 ML VIAL IV ONE ×2 (23:21→23:35)
[2021-07-04] MEDS ORDERED: VANCOMYCIN INJ 1,000 MG in SODIUM CHLORIDE 0.9% 250 ML IV ONE (23:30)
[2021-07-04] MEDS ORDERED: VECURONIUM 10 MG VIAL IV ONE (23:35)
[2021-07-04] MEDS: NOREPINEPHRINE 8 MG in SODIUM CHLORIDE 0.9% 242 ML IV PRN (23:53)
[2021-07-05] MEDS ORDERED: EPINEPHrine 1 MG/ML VIAL ONE (00:51)
[2021-07-05] MEDS ORDERED: EPINEPHrine 1 MG/10 ML SYRINGE ONE (00:51)
[2021-07-05] MEDS ORDERED: DEXTROSE 50% 25 GM/50 ML VIAL IV ONE ×2 (00:51)
[2021-07-05] MEDS ORDERED: NOREPINEPHRINE 4 MG/4 ML VIAL IV ONE ×2 (00:51)
[2021-07-05] MEDS ORDERED: CALCIUM CHLORIDE 1,000 MG/10 ML VIAL IV ONE (00:51)
[2021-07-05] MEDS ORDERED: CALCIUM CHLORIDE 1,000 MG/10 ML SYRINGE IV ONE (00:51)
[2021-07-05] MEDS ORDERED: ETOMIDATE 20 MG/10 ML VIAL IV ONE ×2 (00:51)
[2021-07-05] MEDS ORDERED: SODIUM BICARBONATE 50 MEQ/50 ML VIAL IV ONE ×4 (00:51→03:34)
[2021-07-05] MEDS: ALBUTEROL 2.5 MG/3 ML NEB RESP TX SCH ×4 (00:56→19:22)
[2021-07-05 01:09] LABS: ABG Base Excess -20.8 MMOL/L (-2.5-2.5); ABG HCO3 11.9 MMOL/L (20-26); ABG Oxygen Saturation 98.6 % (95-100); ABG PCO2 55.3 MM HG (35-48); ABG PO2 203.7 MM HG (80-95); ABG TCO2 13.6 MMOL/L (23-27)
[2021-07-05 01:11] LABS: ABG PH 6.951 (7.35-7.45)
[2021-07-05 02:46] LABS: Bilirubin,Urine Negative (Negative); Blood, Urine Small mg/dL (Negative); Glucose,Urine (UA) Negative (Negative); Ketones,Urine Negative (Negative); Mucus,Urine Occasional /LPF (Occasional); Nitrite,Urine Negative (Negative); Protein,Urine 30 MG/DL; RBC,Urine 7 /HPF (0-4); Sperm,Urine Many /HPF (Negative); Urine Appearance CLOUDY (Clear); Urine Color Yellow (Yellow); Urine Urobilinogen < 2.0 EU/DL (0.2-1.0)
[2021-07-05 02:53] LABS: Barbiturates Screen,Urine Negative (Negative); Benzodiazepines Screen,Urine Negative (Negative); Cannabinoid Screen,Urine Negative (Negative); Opiate Screen,Urine Negative (Negative); Phencyclidine Screen,Urine Negative (Negative)
[2021-07-05 02:55] LABS: ABG Base Excess -14.3 MMOL/L (-2.5-2.5); ABG Oxygen Saturation 98.9 % (95-100); ABG TCO2 15.6 MMOL/L (23-27)
[2021-07-05 02:57] LABS: ABG PH 7.094 (7.35-7.45)
[2021-07-05 02:59] LABS: Bilirubin,Total 2.7 MG/DL (0.20-1.00); Calcium 8.8 MG/DL (8.5-10.1); Total Protein 7.4 G/DL (6.4-8.2)
[2021-07-05 03:01] LABS: Potassium 6.2 MMOL/L (3.5-5.1)
[2021-07-05 03:08] LABS: Basophils % 0.2 % (0.0-0.8); Eosinophils % 0.1 % (0.00-10.9); Hematocrit 51.3 VOL% (42.0-52.0); Immature Granulocytes % 1.4 %; Immature Granulocytes Absolute 0.26 #; Lymphocytes # 0.5 10*3/uL (1.4-4.0); Lymphocytes % 2.5 % (21.2-54.2); Mean Corpuscular HGB Conc 31.2 GM/DL (32-36); Mean Corpuscular Volume 89.5 FL (87-102); Mean Platelet Volume 11.2 FL (9.6-12.0); Monocytes % 5.5 % (1.7-12.7); NRBC # 0.39 10*3/uL; Neutrophils % 90.3 % (38.7-73.9); Platelet Count 141 T/CUMM (130-400); Red Blood Count 5.73 MC/CUMM (3.8-5.5); Red Cell Distribution Width 20.4 % (9.3-17.3); White Blood Count 19.2 T/CUMM (4-12)
[2021-07-05] MEDS: SODIUM BICARB INJ 100 MEQ in SODIUM CHLORIDE 0.45% 1,000 ML IV SCH ×2 (03:16→15:27)
[2021-07-05] MEDS ORDERED: LORazepam 2 MG/1 ML VIAL IV ONE (03:38)
[2021-07-05 03:47] LABS: Band Neutrophils 2 % (0-10); Hypochromasia 1+; Lymphocytes 4 % (20-55); Segmented Neutrophils 87 % (50-85); Total Cells Counted 100
[2021-07-05] MEDS: SODIUM CHLORIDE 0.9% 1,000 ML IV SCH ×2 (03:47→15:26)
[2021-07-05 03:48] LABS: Acanthocytes Few; Microcytosis 1+
[2021-07-05 03:49] LABS: Polychromasia Slight
[2021-07-05 03:50] LABS: Ovalocytes Slight; Platelet Estimate Adequate
[2021-07-05] MEDS: HEPARIN 5,000 UNIT/1 ML VIAL SUBCUT SCH ×3 (03:53→18:25)
[2021-07-05] MEDS ORDERED: INSULIN REGULAR 10 UNIT, CALCIUM GLUCONATE 1,000 MG in DEXTROSE 10% 250 ML IV ONE (04:00)
[2021-07-05] MEDS: methylPREDNISolone SOD SUC 40 MG/1 ML VIAL IV SCH ×2 (05:46→18:24)
[2021-07-05 05:53] LABS: ABG Base Excess -9.2 MMOL/L (-2.5-2.5); ABG Oxygen Saturation 99.7 % (95-100); ABG PCO2 43.3 MM HG (35-48); ABG PH 7.236 (7.35-7.45); ABG PO2 364.3 MM HG (80-95); ABG TCO2 19.3 MMOL/L (23-27)
[2021-07-05 06:02] LABS: Basophils % 0.1 % (0.0-0.8); Hemoglobin 15.4 GM/DL (14.0-18.0); Immature Granulocytes % 0.9 %; Immature Granulocytes Absolute 0.25 #; Lymphocytes # 0.4 10*3/uL (1.4-4.0); Lymphocytes % 1.2 % (21.2-54.2); Mean Corpuscular HGB Conc 32.1 GM/DL (32-36); Mean Corpuscular Volume 88.1 FL (87-102); Mean Platelet Volume 11.3 FL (9.6-12.0); Monocytes % 6.8 % (1.7-12.7); NRBC # 0.23 10*3/uL; Platelet Count 130 T/CUMM (130-400); Red Blood Count 5.45 MC/CUMM (3.8-5.5); Red Cell Distribution Width 19.9 % (9.3-17.3); White Blood Count 28.1 T/CUMM (4-12)
[2021-07-05 06:29] LABS: Calcium 9.2 MG/DL (8.5-10.1); Osmolality,Calculated 299.3 MOS/KG (273-304); Potassium 5.4 MMOL/L (3.5-5.1); Risk Ratio 3.69; Thyroid Stimulating Hormone 4.9 uIU/ml (0.358-3.74); VLDL Cholesterol 6.6 MG/DL
[2021-07-05 06:32] LABS: Lymphocytes 3 % (20-55); Nucleated Red Blood Cells 1 (0-5); Platelet Estimate Normal; Segmented Neutrophils 95 % (50-85); Total Cells Counted 100
[2021-07-05 06:47] LABS: HIV Antigen/Antibody Result Nonreactive (Nonreactive)
[2021-07-05] MEDS ORDERED: METOPROLOL SUCCINATE XL 25 MG TABLET PO SCH (09:00)
[2021-07-05] MEDS: METOPROLOL TARTRATE 25 MG TABLET PO SCH ×2 (10:14→21:29)
[2021-07-05] MEDS ORDERED: LACTATED RINGERS 1,000 ML IV ONE (12:25)
[2021-07-05] MEDS ORDERED: PANTOPRAZOLE 40 MG VIAL IV SCH (12:25)
[2021-07-05] MEDS: PANTOPRAZOLE 40 MG VIAL IV SCH (16:45)
[2021-07-05] MEDS: cefTRIAXone 1,000 MG in SODIUM CHLORIDE 0.9% 100 ML IV SCH (18:25)
[2021-07-05] MEDS: AZITHROMYCIN INJ 500 MG in SODIUM CHLORIDE 0.9% 250 ML IV SCH (18:26)
[2021-07-05] MEDS: NOREPINEPHRINE 8 MG in SODIUM CHLORIDE 0.9% 242 ML IV PRN (19:14)
[2021-07-05 20:02] LABS: Hematocrit 47.3 VOL% (42.0-52.0); Hemoglobin 16.4 GM/DL (14.0-18.0)
[2021-07-05] MEDS ORDERED: VANCOMYCIN INJ 1,000 MG in SODIUM CHLORIDE 0.9% 250 ML IV ONE (23:30)
[2021-07-05] MEDS ORDERED: AMIODARONE INJ 150 MG in DEXTROSE 5% 100 ML IV ONE (23:37)
[2021-07-05] MEDS ORDERED: AMIODARONE 150 MG/3 ML VIAL ONE (23:39)
[2021-07-05] MEDS ORDERED: AMIODARONE 450 MG/9 ML VIAL IV ONE (23:39)
[2021-07-05] MEDS ORDERED: AMIODARONE INJ 450 MG in DEXTROSE 5% 241 ML IV SCH (23:45)
[2021-07-06] MEDS: ALBUTEROL 2.5 MG/3 ML NEB RESP TX SCH ×4 (00:43→18:08)
[2021-07-06] MEDS: SODIUM BICARB INJ 100 MEQ in SODIUM CHLORIDE 0.45% 1,000 ML IV SCH ×2 (02:27→14:11)
[2021-07-06] MEDS: PANTOPRAZOLE 40 MG VIAL IV SCH ×2 (03:58→17:40)
[2021-07-06 04:16] LABS: ABG Base Excess -1.3 MMOL/L (-2.5-2.5); ABG HCO3 23.4 MMOL/L (20-26); ABG Oxygen Saturation 99.4 % (95-100); ABG PCO2 37.6 MM HG (35-48); ABG PH 7.397 (7.35-7.45); ABG TCO2 19.1 MMOL/L (23-27)
[2021-07-06 04:30] LABS: Basophils % 0.1 % (0.0-0.8); Hematocrit 50.4 VOL% (42.0-52.0); Hemoglobin 16.7 GM/DL (14.0-18.0); Immature Granulocytes % 0.7 %; Immature Granulocytes Absolute 0.19 #; Lymphocytes # 0.5 10*3/uL (1.4-4.0); Lymphocytes % 1.9 % (21.2-54.2); Mean Corpuscular HGB Conc 33.1 GM/DL (32-36); Monocytes % 3.8 % (1.7-12.7); NRBC # 0.27 10*3/uL; Neutrophils % 93.5 % (38.7-73.9); Platelet Count 128 T/CUMM (130-400); Red Cell Distribution Width 19.9 % (9.3-17.3); White Blood Count 25.8 T/CUMM (4-12)
[2021-07-06 04:41] LABS: Calcium 7.4 MG/DL (8.5-10.1); Osmolality,Calculated 302.5 MOS/KG (273-304); Potassium 5.7 MMOL/L (3.5-5.1)
[2021-07-06 04:47] LABS: Band Neutrophils 2 % (0-10); Segmented Neutrophils 96 % (50-85); Total Cells Counted 100
[2021-07-06] MEDS: methylPREDNISolone SOD SUC 40 MG/1 ML VIAL IV SCH ×2 (06:09→17:41)
[2021-07-06] MEDS ORDERED: AMIODARONE 450 MG/9 ML VIAL IV ONE (07:04)
[2021-07-06] MEDS: AMIODARONE INJ 450 MG in DEXTROSE 5% 241 ML IV SCH ×2 (07:20→22:25)
[2021-07-06] MEDS: NOREPINEPHRINE 8 MG in SODIUM CHLORIDE 0.9% 242 ML IV PRN ×2 (07:41→22:30)
[2021-07-06] MEDS: METOPROLOL TARTRATE 25 MG TABLET PO SCH ×2 (12:07→20:20)
[2021-07-06] MEDS: cefTRIAXone 1,000 MG in SODIUM CHLORIDE 0.9% 100 ML IV SCH (17:34)
[2021-07-07] MEDS: ALBUTEROL 2.5 MG/3 ML NEB RESP TX SCH ×4 (00:20→19:58)
[2021-07-07] MEDS: SODIUM BICARB INJ 100 MEQ in SODIUM CHLORIDE 0.45% 1,000 ML IV SCH ×3 (00:48→23:07)
[2021-07-07] MEDS: PANTOPRAZOLE 40 MG VIAL IV SCH ×2 (04:15→16:29)
[2021-07-07 04:43] LABS: ABG Base Excess -1.4 MMOL/L (-2.5-2.5); ABG HCO3 23.3 MMOL/L (20-26); ABG PCO2 40.3 MM HG (35-48); ABG PH 7.377 (7.35-7.45); ABG TCO2 19.5 MMOL/L (23-27)
[2021-07-07 04:50] LABS: Basophils # 0.1 10*3/uL (0.0-0.2); Basophils % 0.2 % (0.0-0.8); Hemoglobin 17.1 GM/DL (14.0-18.0); Immature Granulocytes Absolute 0.28 #; Lymphocytes # 0.6 10*3/uL (1.4-4.0); Lymphocytes % 2.1 % (21.2-54.2); Mean Corpuscular HGB Conc 33.5 GM/DL (32-36); Mean Corpuscular Volume 83.5 FL (87-102); Monocytes % 4.1 % (1.7-12.7); NRBC # 0.47 10*3/uL; Neutrophils % 92.6 % (38.7-73.9); Platelet Count 115 T/CUMM (130-400); Red Blood Count 6.11 MC/CUMM (3.8-5.5); Red Cell Distribution Width 20.1 % (9.3-17.3); White Blood Count 28.9 T/CUMM (4-12)
[2021-07-07 05:00] LABS: Calcium 6.4 MG/DL (8.5-10.1); Osmolality,Calculated 311.4 MOS/KG (273-304); Potassium 5.7 MMOL/L (3.5-5.1)
[2021-07-07 05:18] LABS: Band Neutrophils 4 % (0-10); Lymphocytes 1 % (20-55); Nucleated Red Blood Cells 4 (0-5); Platelet Estimate Normal; Segmented Neutrophils 95 % (50-85); Total Cells Counted 100
[2021-07-07] MEDS: methylPREDNISolone SOD SUC 40 MG/1 ML VIAL IV SCH ×2 (05:48→19:01)
[2021-07-07] MEDS: METOPROLOL TARTRATE 25 MG TABLET PO SCH ×2 (10:01→20:00)
[2021-07-07] MEDS: NOREPINEPHRINE 8 MG in SODIUM CHLORIDE 0.9% 242 ML IV PRN (10:28)
[2021-07-07] MEDS: AMIODARONE INJ 450 MG in DEXTROSE 5% 241 ML IV SCH ×2 (15:00→16:29)
[2021-07-07] MEDS: cefTRIAXone 1,000 MG in SODIUM CHLORIDE 0.9% 100 ML IV SCH (18:00)
[2021-07-08] MEDS: ALBUTEROL 2.5 MG/3 ML NEB RESP TX SCH ×4 (01:07→19:50)
[2021-07-08] MEDS: PANTOPRAZOLE 40 MG VIAL IV SCH ×2 (04:22→19:40)
[2021-07-08] MEDS: AMIODARONE INJ 450 MG in DEXTROSE 5% 241 ML IV SCH (04:30)
[2021-07-08 04:37] LABS: ABG Base Excess -0.8 MMOL/L (-2.5-2.5); ABG HCO3 22.8 MMOL/L (20-26); ABG Oxygen Saturation 98.7 % (95-100); ABG PCO2 35.1 MM HG (35-48); ABG PO2 138.3 MM HG (80-95); ABG TCO2 23.9 MMOL/L (23-27)
[2021-07-08 04:47] LABS: Basophils # 0.1 10*3/uL (0.0-0.2); Basophils % 0.2 % (0.0-0.8); Hematocrit 48.5 VOL% (42.0-52.0); Hemoglobin 16.7 GM/DL (14.0-18.0); Immature Granulocytes % 0.6 %; Immature Granulocytes Absolute 0.17 #; Lymphocytes # 0.4 10*3/uL (1.4-4.0); Lymphocytes % 1.6 % (21.2-54.2); Mean Corpuscular HGB Conc 34.4 GM/DL (32-36); Mean Corpuscular Volume 81.9 FL (87-102); Monocytes % 3.5 % (1.7-12.7); NRBC # 0.34 10*3/uL; Neutrophils % 94.1 % (38.7-73.9); Red Blood Count 5.92 MC/CUMM (3.8-5.5); Red Cell Distribution Width 19.6 % (9.3-17.3); White Blood Count 26.7 T/CUMM (4-12)
[2021-07-08 04:54] LABS: Platelet Count 102 T/CUMM (130-400)
[2021-07-08 05:08] LABS: Calcium 6.1 MG/DL (8.5-10.1); Osmolality,Calculated 321.4 MOS/KG (273-304); Potassium 4.7 MMOL/L (3.5-5.1)
[2021-07-08] MEDS: methylPREDNISolone SOD SUC 40 MG/1 ML VIAL IV SCH ×2 (05:22→19:42)
[2021-07-08 05:26] LABS: Hypochromasia 1+; Lymphocytes 1 % (20-55); Nucleated Red Blood Cells 3 (0-5); Segmented Neutrophils 97 % (50-85); Total Cells Counted 100
[2021-07-08 05:27] LABS: Acanthocytes Few; Microcytosis 1+; Target Cells Few
[2021-07-08 05:28] LABS: Anisocytosis 1+; Burr Cells Slight; Platelet Estimate Decreased
[2021-07-08] MEDS: NOREPINEPHRINE 8 MG in SODIUM CHLORIDE 0.9% 242 ML IV PRN (06:24)
[2021-07-08] MEDS: SODIUM CHLORIDE 0.9% 1,000 ML IV SCH ×2 (09:48→22:59)
[2021-07-08] MEDS: METOPROLOL TARTRATE 25 MG TABLET PO SCH ×2 (10:41→20:00)
[2021-07-08] MEDS: AMIODARONE 200 MG TABLET PO SCH ×2 (10:41→22:30)
[2021-07-08] MEDS: cefTRIAXone 1,000 MG in SODIUM CHLORIDE 0.9% 100 ML IV SCH (19:36)
[2021-07-08 19:55] LABS: ABG Base Excess 0.1 MMOL/L (-2.5-2.5); ABG HCO3 24.5 MMOL/L (20-26); ABG Oxygen Saturation 98.8 % (95-100); ABG PCO2 38.3 MM HG (35-48); ABG PH 7.413 (7.35-7.45); ABG TCO2 20.5 MMOL/L (23-27)
[2021-07-09] MEDS: ALBUTEROL 2.5 MG/3 ML NEB RESP TX SCH ×4 (00:08→19:17)
[2021-07-09] MEDS: PANTOPRAZOLE 40 MG VIAL IV SCH (04:18)
[2021-07-09 04:48] LABS: ABG Base Excess -0.7 MMOL/L (-2.5-2.5); ABG HCO3 23.8 MMOL/L (20-26); ABG PCO2 37.6 MM HG (35-48); ABG PH 7.405 (7.35-7.45); ABG TCO2 20.2 MMOL/L (23-27)
[2021-07-09 05:02] LABS: Basophils % 0.1 % (0.0-0.8); Hematocrit 43.7 VOL% (42.0-52.0); Hemoglobin 15.2 GM/DL (14.0-18.0); Immature Granulocytes % 0.4 %; Immature Granulocytes Absolute 0.09 #; Lymphocytes # 0.2 10*3/uL (1.4-4.0); Lymphocytes % 1.2 % (21.2-54.2); Mean Corpuscular HGB Conc 34.8 GM/DL (32-36); Mean Corpuscular Volume 82.6 FL (87-102); Monocytes % 4.5 % (1.7-12.7); NRBC # 0.14 10*3/uL; Neutrophils % 93.8 % (38.7-73.9); Red Blood Count 5.29 MC/CUMM (3.8-5.5); Red Cell Distribution Width 19.1 % (9.3-17.3)
[2021-07-09 05:05] LABS: White Blood Count 20.1 T/CUMM (4-12)
[2021-07-09 05:06] LABS: Platelet Count 68 T/CUMM (130-400)
[2021-07-09 05:15] LABS: Albumin 1.8 G/DL (3.4-5.0); Bilirubin,Total 0.4 MG/DL (0.20-1.00); Osmolality,Calculated 327.1 MOS/KG (273-304); Potassium 4.9 MMOL/L (3.5-5.1)
[2021-07-09] MEDS: methylPREDNISolone SOD SUC 40 MG/1 ML VIAL IV SCH ×2 (05:23→17:21)
[2021-07-09 05:24] LABS: Calcium 5.7 MG/DL (8.5-10.1)
[2021-07-09 05:25] LABS: Band Neutrophils 1 % (0-10); Hypochromasia 1+; Lymphocytes 3 % (20-55); Microcytosis 1+; Segmented Neutrophils 95 % (50-85); Total Cells Counted 100
[2021-07-09 05:26] LABS: Acanthocytes Few; Ovalocytes Slight; Target Cells Slight
[2021-07-09 05:27] LABS: Burr Cells Slight; Platelet Estimate Decreased
[2021-07-09] MEDS ORDERED: CALCIUM GLUCONATE 1,000 MG in SODIUM CHLORIDE 0.9% 100 ML IV ONE (06:30)
[2021-07-09] MEDS: AMIODARONE 200 MG TABLET PO SCH ×2 (08:21→21:55)
[2021-07-09] MEDS: METOPROLOL TARTRATE 25 MG TABLET PO SCH ×2 (08:21→21:55)
[2021-07-09] MEDS: SODIUM CHLORIDE 0.9% 1,000 ML IV SCH (14:38)
[2021-07-09] MEDS: cefTRIAXone 1,000 MG in SODIUM CHLORIDE 0.9% 100 ML IV SCH (17:21)
[2021-07-09 21:02] LABS: Hepatitis B Surface Ag Quant < 0.10 Index; Hepatitis B Surface Ag Result Non-Reactive (NonReactive); Hepatitis C Virus Ab Quant 0.03 Index; Hepatitis C Virus Ab Result Non-Reactive (NonReactive)
[2021-07-10] MEDS: ALBUTEROL 2.5 MG/3 ML NEB RESP TX SCH ×4 (00:12→19:47)
[2021-07-10 04:16] LABS: ABG Base Excess -1.3 MMOL/L (-2.5-2.5); ABG HCO3 23.3 MMOL/L (20-26); ABG Oxygen Saturation 98.9 % (95-100); ABG PCO2 34.7 MM HG (35-48); ABG PH 7.419 (7.35-7.45); ABG TCO2 19.2 MMOL/L (23-27)
[2021-07-10 04:29] LABS: Basophils % 0.1 % (0.0-0.8); Hematocrit 41.9 VOL% (42.0-52.0); Hemoglobin 14.2 GM/DL (14.0-18.0); Immature Granulocytes % 0.5 %; Immature Granulocytes Absolute 0.08 #; Lymphocytes # 0.3 10*3/uL (1.4-4.0); Lymphocytes % 1.6 % (21.2-54.2); Mean Corpuscular HGB Conc 33.9 GM/DL (32-36); Mean Corpuscular Volume 81.7 FL (87-102); Monocytes % 4.7 % (1.7-12.7); NRBC # 0.08 10*3/uL; Neutrophils % 93.1 % (38.7-73.9); Platelet Count 69 T/CUMM (130-400); Red Blood Count 5.13 MC/CUMM (3.8-5.5); Red Cell Distribution Width 18.3 % (9.3-17.3)
[2021-07-10 04:57] LABS: Calcium 6.3 MG/DL (8.5-10.1); Osmolality,Calculated 318.3 MOS/KG (273-304); Potassium 4.9 MMOL/L (3.5-5.1)
[2021-07-10 04:59] LABS: Band Neutrophils 1 % (0-10); Lymphocytes 5 % (20-55); Platelet Estimate Decreased; Segmented Neutrophils 89 % (50-85); Total Cells Counted 100
[2021-07-10 05:13] LABS: PT Patient Result 11.6 SECS (10.5-12.0)
[2021-07-10] MEDS: SODIUM CHLORIDE 0.9% 1,000 ML IV SCH (05:36)
[2021-07-10] MEDS: methylPREDNISolone SOD SUC 40 MG/1 ML VIAL IV SCH ×2 (06:28→17:28)
[2021-07-10] MEDS ORDERED: DEXMEDETOMIDINE 200 MCG in SODIUM CHLORIDE 0.9% 48 ML IV PRN (07:22)
[2021-07-10] MEDS: AMIODARONE 200 MG TABLET PO SCH ×2 (08:02→21:09)
[2021-07-10] MEDS: FAMOTIDINE 8 MG/ML 50 ML/BOTTLE PER TUBE SCH (08:03)
[2021-07-10] MEDS: METOPROLOL TARTRATE 25 MG TABLET PO SCH ×2 (08:18→21:16)
[2021-07-10] MEDS: cefTRIAXone 1,000 MG in SODIUM CHLORIDE 0.9% 100 ML IV SCH (17:27)
[2021-07-10] MEDS ORDERED: NOREPINEPHRINE 4 MG/4 ML VIAL IV ONE (19:56)
[2021-07-10] MEDS: NOREPINEPHRINE 8 MG in SODIUM CHLORIDE 0.9% 242 ML IV PRN (20:02)
[2021-07-10] MEDS ORDERED: DEXMEDETOMIDINE 400 MCG in SODIUM CHLORIDE 0.9% 96 ML IV PRN (22:00)
[2021-07-11] MEDS: ALBUTEROL 2.5 MG/3 ML NEB RESP TX SCH ×4 (00:37→19:30)
[2021-07-11 04:25] LABS: ABG Base Excess -2.7 MMOL/L (-2.5-2.5); ABG HCO3 21.4 MMOL/L (20-26); ABG Oxygen Saturation 99.2 % (95-100); ABG PCO2 35.3 MM HG (35-48); ABG PH 7.401 (7.35-7.45); ABG PO2 168.7 MM HG (80-95); ABG TCO2 22.5 MMOL/L (23-27)
[2021-07-11 04:40] LABS: Basophils % 0.1 % (0.0-0.8); Eosinophils % 0.1 % (0.00-10.9); Hematocrit 40.7 VOL% (42.0-52.0); Hemoglobin 13.9 GM/DL (14.0-18.0); Immature Granulocytes % 0.6 %; Lymphocytes # 0.4 10*3/uL (1.4-4.0); Lymphocytes % 2.3 % (21.2-54.2); Mean Corpuscular HGB Conc 34.2 GM/DL (32-36); Mean Corpuscular Volume 81.6 FL (87-102); Monocytes % 6.5 % (1.7-12.7); NRBC # 0.04 10*3/uL; Neutrophils % 90.4 % (38.7-73.9); Red Blood Count 4.99 MC/CUMM (3.8-5.5); Red Cell Distribution Width 18.3 % (9.3-17.3); White Blood Count 16.9 T/CUMM (4-12)
[2021-07-11 04:44] LABS: Calcium 6.5 MG/DL (8.5-10.1); Osmolality,Calculated 313.5 MOS/KG (273-304); Potassium 5.1 MMOL/L (3.5-5.1)
[2021-07-11 04:47] LABS: Platelet Count 75 T/CUMM (130-400)
[2021-07-11 05:14] LABS: Lymphocytes 3 % (20-55); Platelet Estimate Decreased; Segmented Neutrophils 93 % (50-85); Total Cells Counted 100
[2021-07-11 05:15] LABS: Target Cells Slight
[2021-07-11] MEDS: methylPREDNISolone SOD SUC 40 MG/1 ML VIAL IV SCH ×2 (06:45→18:18)
[2021-07-11] MEDS: FAMOTIDINE 8 MG/ML 50 ML/BOTTLE PER TUBE SCH (09:41)
[2021-07-11] MEDS: AMIODARONE 200 MG TABLET PO SCH (09:41)
[2021-07-11] MEDS: cefTRIAXone 1,000 MG in SODIUM CHLORIDE 0.9% 100 ML IV SCH (18:16)
[2021-07-11] MEDS: METOPROLOL TARTRATE 25 MG TABLET PO SCH (19:00)
[2021-07-12] MEDS: ALBUTEROL 2.5 MG/3 ML NEB RESP TX SCH ×4 (01:35→21:43)
[2021-07-12] MEDS: methylPREDNISolone SOD SUC 40 MG/1 ML VIAL IV SCH ×2 (05:09→17:23)
[2021-07-12 05:35] LABS: Basophils % 0.1 % (0.0-0.8); Eosinophils % 0.2 % (0.00-10.9); Hematocrit 39.7 VOL% (42.0-52.0); Hemoglobin 13.8 GM/DL (14.0-18.0); Immature Granulocytes % 0.6 %; Lymphocytes # 0.6 10*3/uL (1.4-4.0); Lymphocytes % 3.8 % (21.2-54.2); Mean Corpuscular HGB Conc 34.8 GM/DL (32-36); Mean Corpuscular Volume 81.4 FL (87-102); Monocytes % 7.4 % (1.7-12.7); Neutrophils % 87.9 % (38.7-73.9); Platelet Count 69 T/CUMM (130-400); Red Blood Count 4.88 MC/CUMM (3.8-5.5); Red Cell Distribution Width 18.4 % (9.3-17.3); White Blood Count 16.4 T/CUMM (4-12)
[2021-07-12 05:58] LABS: Lymphocytes 2 % (20-55); Platelet Estimate Decreased; Segmented Neutrophils 92 % (50-85); Total Cells Counted 100
[2021-07-12 06:06] LABS: Bilirubin,Total 0.5 MG/DL (0.20-1.00); Calcium 6.8 MG/DL (8.5-10.1); Osmolality,Calculated 306.5 MOS/KG (273-304); Potassium 4.7 MMOL/L (3.5-5.1); Total Protein 5.7 G/DL (6.4-8.2)
[2021-07-12] MEDS: METOPROLOL TARTRATE 25 MG TABLET PO SCH (08:03)
[2021-07-12] MEDS: AMIODARONE 200 MG TABLET PO SCH (08:03)
[2021-07-12] MEDS: FAMOTIDINE 8 MG/ML 50 ML/BOTTLE PO SCH (08:04)
[2021-07-12] MEDS: FAMOTIDINE 8 MG/ML 50 ML/BOTTLE PER TUBE SCH (08:04)
[2021-07-12] MEDS: HEPARIN 5,000 UNIT/1 ML VIAL SUBCUT SCH (09:04)
[2021-07-12] MEDS: cefTRIAXone 1,000 MG in SODIUM CHLORIDE 0.9% 100 ML IV SCH (17:23)
[2021-07-12] MEDS: levETIRAcetam 500 MG TABLET PO SCH ×2 (17:23→21:45)
[2021-07-12] MEDS: METOPROLOL SUCCINATE XL 25 MG TABLET PO SCH (21:44)
[2021-07-12] MEDS: ISOSORBIDE DINITRATE 20 MG TABLET PO SCH (21:45)
[2021-07-12] MEDS: hydrALAZINE 10 MG TABLET PO SCH (21:45)
[2021-07-13] MEDS: ALBUTEROL 2.5 MG/3 ML NEB RESP TX SCH ×4 (00:42→19:10)
[2021-07-13 06:14] LABS: Basophils % 0.1 % (0.0-0.8); Eosinophils # 0.1 10*3/uL (0.0-0.87); Eosinophils % 0.5 % (0.00-10.9); Hematocrit 39.1 VOL% (42.0-52.0); Hemoglobin 13.2 GM/DL (14.0-18.0); Immature Granulocytes % 0.5 %; Immature Granulocytes Absolute 0.08 #; Lymphocytes # 0.7 10*3/uL (1.4-4.0); Lymphocytes % 4.3 % (21.2-54.2); Mean Corpuscular HGB Conc 33.8 GM/DL (32-36); Mean Corpuscular Volume 81.8 FL (87-102); Mean Platelet Volume 11.6 FL (9.6-12.0); Monocytes % 8.2 % (1.7-12.7); Neutrophils % 86.4 % (38.7-73.9); Red Blood Count 4.78 MC/CUMM (3.8-5.5); Red Cell Distribution Width 17.9 % (9.3-17.3); White Blood Count 15.9 T/CUMM (4-12)
[2021-07-13 06:16] LABS: Platelet Count 113 T/CUMM (130-400)
[2021-07-13 06:33] LABS: Anisocytosis 2+; Lymphocytes 5 % (20-55); Ovalocytes Few; Platelet Estimate Adequate; Poikilocytosis 1+; Segmented Neutrophils 88 % (50-85); Target Cells Few; Total Cells Counted 100
[2021-07-13 06:34] LABS: Burr Cells Few; Calcium 6.7 MG/DL (8.5-10.1); Macrocytosis Slight; Osmolality,Calculated 303.1 MOS/KG (273-304); Potassium 4.8 MMOL/L (3.5-5.1)
[2021-07-13] MEDS: methylPREDNISolone SOD SUC 40 MG/1 ML VIAL IV SCH ×2 (07:22→17:09)
[2021-07-13] MEDS: METOPROLOL SUCCINATE XL 25 MG TABLET PO SCH ×2 (09:25→21:07)
[2021-07-13] MEDS: levETIRAcetam 500 MG TABLET PO SCH ×2 (09:26→21:08)
[2021-07-13] MEDS: FAMOTIDINE 8 MG/ML 50 ML/BOTTLE PO SCH (09:26)
[2021-07-13] MEDS: AMIODARONE 200 MG TABLET PO SCH (09:26)
[2021-07-13] MEDS: hydrALAZINE 10 MG TABLET PO SCH ×2 (09:26→16:49)
[2021-07-13] MEDS: ISOSORBIDE DINITRATE 20 MG TABLET PO SCH ×2 (09:26→21:07)
[2021-07-13] MEDS: cefTRIAXone 1,000 MG in SODIUM CHLORIDE 0.9% 100 ML IV SCH (17:09)
[2021-07-13] MEDS: hydrALAZINE 25 MG TABLET PO SCH (21:08)
[2021-07-13] MEDS: ASCORBIC ACID 500 MG TABLET PO SCH (21:08)
[2021-07-14] MEDS: ALBUTEROL 2.5 MG/3 ML NEB RESP TX SCH ×4 (00:30→20:25)
[2021-07-14 05:16] LABS: Basophils % 0.1 % (0.0-0.8); Eosinophils % 0.1 % (0.00-10.9); Hematocrit 36.2 VOL% (42.0-52.0); Hemoglobin 12.6 GM/DL (14.0-18.0); Immature Granulocytes % 0.7 %; Lymphocytes # 0.5 10*3/uL (1.4-4.0); Lymphocytes % 3.1 % (21.2-54.2); Mean Corpuscular HGB Conc 34.8 GM/DL (32-36); Mean Corpuscular Volume 82.5 FL (87-102); Mean Platelet Volume 11.8 FL (9.6-12.0); Monocytes % 6.5 % (1.7-12.7); Neutrophils % 89.5 % (38.7-73.9); Platelet Count 123 T/CUMM (130-400); Red Blood Count 4.39 MC/CUMM (3.8-5.5); Red Cell Distribution Width 17.9 % (9.3-17.3)
[2021-07-14 05:53] LABS: Calcium 7.1 MG/DL (8.5-10.1); Osmolality,Calculated 304.8 MOS/KG (273-304); Potassium 4.5 MMOL/L (3.5-5.1)
[2021-07-14] MEDS: methylPREDNISolone SOD SUC 40 MG/1 ML VIAL IV SCH ×2 (06:10→17:47)
[2021-07-14 07:56] LABS: Burr Cells 2+
[2021-07-14 07:57] LABS: Acanthocytes 1+; Platelet Estimate Adequate
[2021-07-14] MEDS: ASCORBIC ACID 500 MG TABLET PO SCH ×2 (08:48→21:22)
[2021-07-14] MEDS: AMIODARONE 200 MG TABLET PO SCH (08:48)
[2021-07-14] MEDS: hydrALAZINE 25 MG TABLET PO SCH ×3 (08:48→21:22)
[2021-07-14] MEDS: levETIRAcetam 500 MG TABLET PO SCH ×2 (08:48→21:22)
[2021-07-14] MEDS: METOPROLOL SUCCINATE XL 25 MG TABLET PO SCH ×2 (08:48→21:22)
[2021-07-14] MEDS: ISOSORBIDE DINITRATE 20 MG TABLET PO SCH ×2 (08:48→21:21)
[2021-07-14] MEDS: FAMOTIDINE 8 MG/ML 50 ML/BOTTLE PO SCH (11:05)
[2021-07-14 14:18] LABS: Hematocrit 36.3 VOL% (42.0-52.0)
[2021-07-14] MEDS: metroNIDAZOLE INJ 500 MG/100 ML PREMIX IV SCH ×2 (15:59→23:48)
[2021-07-14] MEDS: cefTRIAXone 1,000 MG in SODIUM CHLORIDE 0.9% 100 ML IV SCH (17:46)
[2021-07-14] MEDS: DOCUSATE SODIUM 100 MG CAPSULE PO SCH (21:22)
[2021-07-15] MEDS: ALBUTEROL 2.5 MG/3 ML NEB RESP TX SCH ×4 (01:05→19:57)
[2021-07-15 04:42] LABS: Basophils % 0.1 % (0.0-0.8); Hematocrit 35.5 VOL% (42.0-52.0); Immature Granulocytes % 0.5 %; Immature Granulocytes Absolute 0.08 #; Lymphocytes # 0.4 10*3/uL (1.4-4.0); Lymphocytes % 2.7 % (21.2-54.2); Mean Corpuscular HGB Conc 33.8 GM/DL (32-36); Mean Corpuscular Volume 82.6 FL (87-102); Mean Platelet Volume 12.5 FL (9.6-12.0); Monocytes % 5.4 % (1.7-12.7); Neutrophils % 91.3 % (38.7-73.9); Platelet Count 163 T/CUMM (130-400); Red Cell Distribution Width 17.8 % (9.3-17.3); White Blood Count 15.3 T/CUMM (4-12)
[2021-07-15 05:00] LABS: Calcium 6.9 MG/DL (8.5-10.1); Osmolality,Calculated 305.1 MOS/KG (273-304); Potassium 4.6 MMOL/L (3.5-5.1)
[2021-07-15 05:03] LABS: Lymphocytes 2 % (20-55); Platelet Estimate Adequate; Segmented Neutrophils 91 % (50-85); Total Cells Counted 100
[2021-07-15 05:04] LABS: Hypochromasia Slight; Microcytosis Slight; Ovalocytes Slight
[2021-07-15] MEDS: methylPREDNISolone SOD SUC 40 MG/1 ML VIAL IV SCH ×2 (05:15→18:21)
[2021-07-15] MEDS: hydrALAZINE 25 MG TABLET PO SCH ×3 (08:40→21:30)
[2021-07-15] MEDS: ISOSORBIDE DINITRATE 20 MG TABLET PO SCH ×2 (08:40→21:30)
[2021-07-15] MEDS: DOCUSATE SODIUM 100 MG CAPSULE PO SCH ×2 (08:40→21:30)
[2021-07-15] MEDS: levETIRAcetam 500 MG TABLET PO SCH ×2 (08:40→21:30)
[2021-07-15] MEDS: ASCORBIC ACID 500 MG TABLET PO SCH ×2 (08:40→21:30)
[2021-07-15] MEDS: METOPROLOL SUCCINATE XL 25 MG TABLET PO SCH ×2 (08:40→21:30)
[2021-07-15] MEDS: AMIODARONE 200 MG TABLET PO SCH (08:40)
[2021-07-15] MEDS: metroNIDAZOLE INJ 500 MG/100 ML PREMIX IV SCH ×2 (08:41→16:24)
[2021-07-15] MEDS: FAMOTIDINE 8 MG/ML 50 ML/BOTTLE PO SCH (08:42)
[2021-07-15] MEDS: POLYETHYLENE GLYCOL POWDER 17 GM PACK PO SCH (08:42)
[2021-07-15] MEDS: cefTRIAXone 1,000 MG in SODIUM CHLORIDE 0.9% 100 ML IV SCH (18:21)
[2021-07-16] MEDS: metroNIDAZOLE INJ 500 MG/100 ML PREMIX IV SCH ×4 (00:06→23:50)
[2021-07-16] MEDS: ALBUTEROL 2.5 MG/3 ML NEB RESP TX SCH ×4 (01:33→18:28)
[2021-07-16 05:19] LABS: Basophils % 0.1 % (0.0-0.8); Eosinophils % 0.1 % (0.00-10.9); Hemoglobin 11.8 GM/DL (14.0-18.0); Immature Granulocytes % 0.6 %; Immature Granulocytes Absolute 0.11 #; Lymphocytes # 0.5 10*3/uL (1.4-4.0); Lymphocytes % 2.8 % (21.2-54.2); Mean Corpuscular HGB Conc 33.7 GM/DL (32-36); Mean Corpuscular Volume 82.2 FL (87-102); Mean Platelet Volume 11.1 FL (9.6-12.0); Monocytes % 5.2 % (1.7-12.7); Neutrophils % 91.2 % (38.7-73.9); Platelet Count 163 T/CUMM (130-400); Red Blood Count 4.26 MC/CUMM (3.8-5.5); Red Cell Distribution Width 17.8 % (9.3-17.3)
[2021-07-16 05:35] LABS: Calcium 6.7 MG/DL (8.5-10.1); Potassium 4.5 MMOL/L (3.5-5.1)
[2021-07-16 05:44] LABS: Hypersegmented Neutrophil SLIGHT; Hypochromasia 1+; Lymphocytes 2 % (20-55); Microcytosis 1+; Segmented Neutrophils 96 % (50-85); Total Cells Counted 100
[2021-07-16 05:45] LABS: Acanthocytes Few; Elliptocytes Few; Platelet Estimate Adequate; Target Cells Slight
[2021-07-16] MEDS: methylPREDNISolone SOD SUC 40 MG/1 ML VIAL IV SCH ×2 (06:05→17:54)
[2021-07-16] MEDS: FAMOTIDINE 8 MG/ML 50 ML/BOTTLE PO SCH (09:26)
[2021-07-16] MEDS: POLYETHYLENE GLYCOL POWDER 17 GM PACK PO SCH (09:27)
[2021-07-16] MEDS: METOPROLOL SUCCINATE XL 25 MG TABLET PO SCH ×2 (09:27→21:14)
[2021-07-16] MEDS: DOCUSATE SODIUM 100 MG CAPSULE PO SCH ×2 (09:27→21:14)
[2021-07-16] MEDS: ISOSORBIDE DINITRATE 20 MG TABLET PO SCH ×2 (09:27→21:14)
[2021-07-16] MEDS: hydrALAZINE 25 MG TABLET PO SCH ×3 (09:28→21:14)
[2021-07-16] MEDS: levETIRAcetam 500 MG TABLET PO SCH ×2 (09:28→21:15)
[2021-07-16] MEDS: ASCORBIC ACID 500 MG TABLET PO SCH ×2 (09:28→21:14)
[2021-07-16] MEDS: AMIODARONE 200 MG TABLET PO SCH (09:32)
[2021-07-16] MEDS ORDERED: HEPARIN 10,000 UNIT/10 ML VIAL IV PRN (10:47)
[2021-07-16] MEDS ORDERED: TUBERCULIN SKIN TEST 0.1 ML SYRINGE INTRADERM ONE (15:00)
[2021-07-16] MEDS: cefTRIAXone 1,000 MG in SODIUM CHLORIDE 0.9% 100 ML IV SCH (17:54)
[2021-07-17] MEDS: ALBUTEROL 2.5 MG/3 ML NEB RESP TX SCH ×4 (01:26→19:10)
[2021-07-17] MEDS: methylPREDNISolone SOD SUC 40 MG/1 ML VIAL IV SCH ×2 (05:27→17:32)
[2021-07-17] MEDS: AMIODARONE 200 MG TABLET PO SCH (09:30)
[2021-07-17] MEDS: FAMOTIDINE 8 MG/ML 50 ML/BOTTLE PO SCH (09:30)
[2021-07-17] MEDS: POLYETHYLENE GLYCOL POWDER 17 GM PACK PO SCH (09:30)
[2021-07-17] MEDS: METOPROLOL SUCCINATE XL 25 MG TABLET PO SCH ×2 (09:30→20:38)
[2021-07-17] MEDS: ASCORBIC ACID 500 MG TABLET PO SCH ×2 (09:30→20:38)
[2021-07-17] MEDS: ISOSORBIDE DINITRATE 20 MG TABLET PO SCH ×2 (09:30→20:37)
[2021-07-17] MEDS: metroNIDAZOLE INJ 500 MG/100 ML PREMIX IV SCH ×2 (09:30→15:28)
[2021-07-17] MEDS: hydrALAZINE 25 MG TABLET PO SCH ×3 (09:30→20:37)
[2021-07-17] MEDS: DOCUSATE SODIUM 100 MG CAPSULE PO SCH ×2 (09:30→20:37)
[2021-07-17] MEDS: levETIRAcetam 500 MG TABLET PO SCH ×2 (09:30→20:38)
[2021-07-17] MEDS ORDERED: LIDOCAINE 1%/EPI INJ 20 ML VIAL ONE (12:24)
[2021-07-17] MEDS ORDERED: HEPARIN 5,000 UNIT/1 ML VIAL ONE (12:24)
[2021-07-17] MEDS ORDERED: BUPIVACAINE MPF 0.25% 30 ML VIAL ONE (12:25)
[2021-07-17] MEDS ORDERED: MIDAZOLAM 2 MG/2 ML VIAL ONE (15:42)
[2021-07-17] MEDS ORDERED: SODIUM CHLORIDE 0.9% 250 ML IV ONE (16:08)
[2021-07-17] MEDS ORDERED: ceFAZolin 1,000 MG VIAL ONE (16:34)
[2021-07-17] MEDS: cefTRIAXone 1,000 MG in SODIUM CHLORIDE 0.9% 100 ML IV SCH (18:00)
[2021-07-18] MEDS: metroNIDAZOLE INJ 500 MG/100 ML PREMIX IV SCH ×4 (00:50→23:47)
[2021-07-18] MEDS: ALBUTEROL 2.5 MG/3 ML NEB RESP TX SCH ×4 (01:42→19:30)
[2021-07-18] MEDS: methylPREDNISolone SOD SUC 40 MG/1 ML VIAL IV SCH ×2 (05:31→18:12)
[2021-07-18 07:02] LABS: Basophils % 0.2 % (0.0-0.8); Eosinophils % 0.1 % (0.00-10.9); Hematocrit 37.8 VOL% (42.0-52.0); Hemoglobin 12.9 GM/DL (14.0-18.0); Immature Granulocytes % 0.6 %; Lymphocytes # 0.6 10*3/uL (1.4-4.0); Lymphocytes % 3.8 % (21.2-54.2); Mean Corpuscular HGB Conc 34.1 GM/DL (32-36); Mean Corpuscular Volume 82.2 FL (87-102); Mean Platelet Volume 10.2 FL (9.6-12.0); Monocytes % 7.1 % (1.7-12.7); Neutrophils % 88.2 % (38.7-73.9); Platelet Count 147 T/CUMM (130-400); Red Cell Distribution Width 17.6 % (9.3-17.3); White Blood Count 16.8 T/CUMM (4-12)
[2021-07-18 07:23] LABS: Calcium 6.8 MG/DL (8.5-10.1); Osmolality,Calculated 302.8 MOS/KG (273-304)
[2021-07-18 07:26] LABS: Hypochromasia 1+; Lymphocytes 2 % (20-55); Microcytosis 1+; Platelet Estimate Adequate; Segmented Neutrophils 94 % (50-85); Total Cells Counted 100
[2021-07-18] MEDS: ASCORBIC ACID 500 MG TABLET PO SCH ×2 (09:17→20:34)
[2021-07-18] MEDS: levETIRAcetam 500 MG TABLET PO SCH ×2 (09:17→20:34)
[2021-07-18] MEDS: DOCUSATE SODIUM 100 MG CAPSULE PO SCH ×2 (09:17→20:34)
[2021-07-18] MEDS: ISOSORBIDE DINITRATE 20 MG TABLET PO SCH ×2 (09:17→20:35)
[2021-07-18] MEDS: AMIODARONE 200 MG TABLET PO SCH ×2 (09:17→20:35)
[2021-07-18] MEDS: hydrALAZINE 25 MG TABLET PO SCH ×3 (09:18→20:35)
[2021-07-18] MEDS: POLYETHYLENE GLYCOL POWDER 17 GM PACK PO SCH (09:18)
[2021-07-18] MEDS: METOPROLOL SUCCINATE XL 50 MG TABLET PO SCH ×2 (09:18→20:35)
[2021-07-18] MEDS ORDERED: AMIODARONE INJ 150 MG in DEXTROSE 5% 100 ML IV ONE (10:10)
[2021-07-18] MEDS ORDERED: AMIODARONE INJ 450 MG in DEXTROSE 5% 241 ML IV SCH (10:30)
[2021-07-18] MEDS: FAMOTIDINE 8 MG/ML 50 ML/BOTTLE PO SCH (13:04)
[2021-07-18] MEDS: ACETAMINOPHEN 325 MG TABLET PO PRN (13:39)
[2021-07-18] MEDS: cefTRIAXone 1,000 MG in SODIUM CHLORIDE 0.9% 100 ML IV SCH (18:12)
[2021-07-19] MEDS: ALBUTEROL 2.5 MG/3 ML NEB RESP TX SCH ×4 (00:05→20:20)
[2021-07-19] MEDS: methylPREDNISolone SOD SUC 40 MG/1 ML VIAL IV SCH ×2 (06:05→17:19)
[2021-07-19 07:42] LABS: Calcium 7.3 MG/DL (8.5-10.1); Osmolality,Calculated 290.7 MOS/KG (273-304); Potassium 4.1 MMOL/L (3.5-5.1)
[2021-07-19 07:57] LABS: Basophils % 0.1 % (0.0-0.8); Eosinophils # 0.1 10*3/uL (0.0-0.87); Eosinophils % 0.3 % (0.00-10.9); Hematocrit 36.2 VOL% (42.0-52.0); Immature Granulocytes % 0.7 %; Immature Granulocytes Absolute 0.13 #; Lymphocytes # 0.7 10*3/uL (1.4-4.0); Lymphocytes % 3.8 % (21.2-54.2); Mean Corpuscular HGB Conc 33.1 GM/DL (32-36); Mean Corpuscular Volume 83.2 FL (87-102); Mean Platelet Volume 9.9 FL (9.6-12.0); Monocytes % 5.9 % (1.7-12.7); Neutrophils % 89.2 % (38.7-73.9); Platelet Count 150 T/CUMM (130-400); Red Blood Count 4.35 MC/CUMM (3.8-5.5); White Blood Count 18.3 T/CUMM (4-12)
[2021-07-19] MEDS: AMIODARONE 200 MG TABLET PO SCH ×2 (08:37→20:50)
[2021-07-19] MEDS: ISOSORBIDE DINITRATE 20 MG TABLET PO SCH ×2 (08:37→20:51)
[2021-07-19] MEDS: levETIRAcetam 500 MG TABLET PO SCH ×2 (08:37→20:51)
[2021-07-19] MEDS: DOCUSATE SODIUM 100 MG CAPSULE PO SCH ×2 (08:37→20:51)
[2021-07-19] MEDS: ASCORBIC ACID 500 MG TABLET PO SCH ×2 (08:37→20:51)
[2021-07-19] MEDS: POLYETHYLENE GLYCOL POWDER 17 GM PACK PO SCH (08:37)
[2021-07-19] MEDS: metroNIDAZOLE INJ 500 MG/100 ML PREMIX IV SCH ×2 (08:38→16:16)
[2021-07-19] MEDS: FAMOTIDINE 8 MG/ML 50 ML/BOTTLE PO SCH (08:38)
[2021-07-19 08:43] LABS: Band Neutrophils 1 % (0-10); Lymphocytes 6 % (20-55); Metamyelocytes 4 %; Segmented Neutrophils 81 % (50-85); Total Cells Counted 100
[2021-07-19 08:44] LABS: Burr Cells 3+; Elliptocytes Few; Platelet Estimate Adequate
[2021-07-19] MEDS: hydrALAZINE 25 MG TABLET PO SCH ×3 (09:31→20:51)
[2021-07-19] MEDS: METOPROLOL SUCCINATE XL 50 MG TABLET PO SCH ×2 (09:32→20:50)
[2021-07-19] MEDS: ACETAMINOPHEN 325 MG TABLET PO PRN (21:06)
[2021-07-20] MEDS: metroNIDAZOLE INJ 500 MG/100 ML PREMIX IV SCH ×2 (00:02→09:37)
[2021-07-20] MEDS: ALBUTEROL 2.5 MG/3 ML NEB RESP TX SCH ×3 (01:43→14:07)
[2021-07-20] MEDS: methylPREDNISolone SOD SUC 40 MG/1 ML VIAL IV SCH (05:58)
[2021-07-20 09:02] VITALS: BP 117/78
[2021-07-20] MEDS: POLYETHYLENE GLYCOL POWDER 17 GM PACK PO SCH (09:36)
[2021-07-20] MEDS: METOPROLOL SUCCINATE XL 50 MG TABLET PO SCH (09:37)
[2021-07-20] MEDS: levETIRAcetam 500 MG TABLET PO SCH (09:37)
[2021-07-20] MEDS: DOCUSATE SODIUM 100 MG CAPSULE PO SCH (09:37)
[2021-07-20] MEDS: ISOSORBIDE DINITRATE 20 MG TABLET PO SCH (09:37)
[2021-07-20] MEDS: AMIODARONE 200 MG TABLET PO SCH (09:37)
[2021-07-20] MEDS: hydrALAZINE 25 MG TABLET PO SCH (09:37)
[2021-07-20] MEDS: ASCORBIC ACID 500 MG TABLET PO SCH (09:37)
[2021-07-20] MEDS: FAMOTIDINE 8 MG/ML 50 ML/BOTTLE PO SCH (09:38)
== END 2021-07-20 15:51 | DRG 207 ==
LOC: N.ED 13:18 → SUATTDRO 17:24 → N.EDINP 17:24 → N.ICU 07-05 01:35 → N.TELES 07-12 11:07
PROVIDERS: ADMIT Internal Medicine; ATTEND Internal Medicine